=== PATIENT | female | born 1940 | race Caucasian/White ===

== ENCOUNTER → 2016-10-31 | Outpatient (REF) | payer OTHER ==
[~2016-10-31] MED LIST: /CELE20CA OR; ALLO300T; ALLO300T OR; ASPI325T; ASPI81TA83 OR; CORE25TA OR; DEME50TA; FLEXERIL; FLEXERIL OR; GLIP5TAB20 OR; GLUC850T OR; KLON0.5T OR; LASI80TA OR; LIDO5DIS EXT; MICA80TA OR; PERC5TAB8 OR; TRAM50TA2 OR; ZOCO20TA OR
== END ==
LOC: M SFHCPLAZ 08:06
PROVIDERS: ATTEND Family Medicine
DX: E11.9 Type 2 diabetes mellitus without complications (principal); E78.5 Hyperlipidemia, unspecified; M81.0 Age-related osteoporosis without current pathological fracture

== ENCOUNTER → 2016-10-31 | Outpatient (CLI) | payer OTHER | LOC: M WHC 08:35 | PROVIDERS: ATTEND Family Medicine | DX: M81.0 Age-related osteoporosis without current pathological fracture (principal) ==

== ENCOUNTER → 2017-02-25 | Outpatient (REF) | payer OTHER ==
[2017-02-25 12:45] LABS: ALBUMIN 3.7 GM/DL (3.2-5.2); ALBUMIN/GLOBULIN RATIO 1.42 (1.00-1.93); BILIRUBIN,TOTAL 0.4 MG/DL (0.2-1.0); CALCIUM LEVEL 9.6 MG/DL (8.8-10.2); CREATININE FOR GFR 1.29 MG/DL (0.55-1.02); GLOMERULAR FILTRATION RATE 42.7 (>39); POTASSIUM SERUM 4.6 MEQ/L (3.5-5.1); TOTAL PROTEIN 6.3 GM/DL (6.4-8.2)
== END ==
LOC: M SFHCPLAZ 08:17
PROVIDERS: ATTEND Family Medicine
DX: M79.1 Myalgia (principal)

== ENCOUNTER 2017-04-28 11:43 | Emergency (ER) | payer OTHER ==
[2017-04-28] MEDS ORDERED: NS 1,000 ML IV SCH (13:05)
[2017-04-28] MEDS ORDERED: MECLIZINE 25 MG TABLET PO ONE (13:15)
--- NOTE | 2017-04-28 13:34 | REP ---
CT of the brain without IV contrast: There are no comparisons. There is no hemorrhage. There is no edema, mass effect or midline shift. The cortical stripe is unremarkable. There are hypo densities in the subcortical/periventricular white matter compatible with chronic microvascular ischemia. Impression: There is no hemorrhage, acute infarct or mass. There are findings compatible with chronic microvascular ischemia. Signed by Kory Contreras MD 04/28/2017 01:27 P
[2017-04-28 13:44] LABS: BASO % 0.7 % (0.0-1.0); EOS # 0.4 K/mm3 (0.0-0.50); EOS % 5.1 % (0.0-3.0); LARGE UNSTAINED CELL # 0.1 K/mm3 (0.0-0.4); LARGE UNSTAINED CELL % 1.9 % (0.0-4.0); LYMPH # 1.7 K/mm3 (1.5-4.5); LYMPH % 23.3 % (24.0-44.0); MEAN CORPUSCULAR HGB CONC 34.2 g/dl (32.0-36.5); MEAN CORPUSCULAR VOLUME 93.5 fl (80.0-96.0); MONO # 0.4 K/mm3 (0.0-0.8); MONO % 4.8 % (0.0-5.0); NEUTROPHILS # 4.6 K/mm3 (1.8-7.7); NEUTROPHILS % 64.2 % (36.0-66.0); PLATELET COUNT, AUTOMATED 272 k/mm3 (150-450); RED CELL DISTRIBUTION WIDTH 13.5 % (11.5-14.5); WHITE BLOOD COUNT 7.2 K/mm3 (4.0-10.0)
--- NOTE | 2017-04-28 13:44 | REP ---
PA and lateral chest: Comparison studies are 09/11/2010 and 11/07 2009. The lung perez are clear. Cardiac size is upper normal. The katharine and mediastinum are unremarkable. There are calcifications in the left humeral head and neck compatible with infarct versus enchondroma. This is unchanged. There is osteoarthritis of the left shoulder, unchanged. There is a focal density projecting just inferior to the costochondral junction of the left first rib, unchanged from both prior studies, likely related to costochondral calcification. Impression: Essentially negative chest. There are no new or acute cardiopulmonary findings. There are chronic stable findings as described. Signed by Kory Contreras MD 04/28/2017 01:36 P
[2017-04-28 13:48] LABS: ALBUMIN 3.8 GM/DL (3.2-5.2); ALBUMIN/GLOBULIN RATIO 1.58 (1.00-1.93); ALKALINE PHOSPHATASE 42 U/L (45-117); ALT/SGPT 22 U/L (12-78); ANION GAP 10 MEQ/L (8-16); AST/SGOT 24 U/L (15-37); BILIRUBIN,DIRECT 0.1 MG/DL (0.0-0.2); BILIRUBIN,TOTAL 0.4 MG/DL (0.2-1.0); BLOOD UREA NITROGEN 32 MG/DL (7-18); CALCIUM LEVEL 10.2 MG/DL (8.8-10.2); CARBON DIOXIDE LEVEL 26 MEQ/L (21-32); CHLORIDE LEVEL 101 MEQ/L (98-107); CREATININE FOR GFR 1.28 MG/DL (0.55-1.02); GLUCOSE, FASTING 149 MG/DL (83-110); SODIUM LEVEL 137 MEQ/L (136-145); TOTAL PROTEIN 6.2 GM/DL (6.4-8.2)
[2017-04-28 13:49] LABS: METHADONE URINE NEGATIVE (NEGATIVE)
[2017-04-28 14:12] VITALS: BP 177/79
[2017-04-28] MEDS ORDERED: MECL-68 PO (14:55)
--- NOTE | 2017-04-30 11:10 | ECGEPIP ---
Stationary ECG Study [facility] - ED Test Date: 2017-04-28 Pat Name: FOREST ALMARAZ Department: Room: - Gender: F Paramedical Aide: umair : 1940 Requested By: ANH العراقي Order Number: [id number] Reading MD: Aide Avendano Measurements Intervals [place] Rate: 60 P: 69 AL: 283 QRS: -32 QRSD: 102 T: 31 QT: 422 QTc: 422 Interpretive Statements SINUS RHYTHM WITH FIRST DEGREE AV BLOCK INFERIOR MYOCARDIAL INFARCTION, PROBABLY OLD DELAYED R PROGRESSION NSTTW ABNORMALITY NO PRIOR FOR COMPARISON Electronically Signed On 04-30-2017 11:10:31 EDT by Aide Avendano
== END 2017-04-28 15:13 | disposition home or self-care (01) ==
LOC: M ED 11:43
DX: H83.09 Labyrinthitis, unspecified ear (principal); E11.9 Type 2 diabetes mellitus without complications; E78.4 Other hyperlipidemia; Z87.891 Personal history of nicotine dependence
CPT/HCPCS: 70450; 71010; 80048; 80076; 80307; 81001; 82550; 82553; 84443; 85025; 87086; 93005; 93041; 94760; 99285; G0480

== ENCOUNTER → 2017-10-13 | Outpatient (REF) | payer OTHER | LOC: M SFHCPLAZ 09:13 | DX: E11.9 Type 2 diabetes mellitus without complications (principal) ==

== ENCOUNTER → 2017-10-13 | Outpatient (REF) | payer OTHER ==
[2017-10-13 13:49] LABS: ESTIMATED AVERAGE GLUCOSE 157 MG/DL (60-110); HEMOGLOBIN A1c 7.1 %
== END ==
LOC: M SFHCPLAZ 12:50
DX: E11.9 Type 2 diabetes mellitus without complications (principal)

== ENCOUNTER → 2017-10-28 | Outpatient (REF) | payer OTHER ==
[2017-10-28 13:36] LABS: ANION GAP 10 MEQ/L (8-16); BLOOD UREA NITROGEN 33 MG/DL (7-18); CALCIUM LEVEL 9.9 MG/DL (8.8-10.2); CARBON DIOXIDE LEVEL 29 MEQ/L (21-32); CHLORIDE LEVEL 102 MEQ/L (98-107); CREATININE FOR GFR 1.42 MG/DL (0.55-1.02); GLOMERULAR FILTRATION RATE 38.1 (>39); GLUCOSE, FASTING 208 MG/DL (70-100); POTASSIUM SERUM 4.6 MEQ/L (3.5-5.1); SODIUM LEVEL 141 MEQ/L (136-145)
[2017-10-28 18:35] LABS: CREATININE, URINE 16.7 MG/DL; MALB URINE SIEMENS 14.4 MG/L; MAU/CREAT RATIO 86.2 MCG/MG (0.0-30.0)
== END ==
LOC: M SFHCPLAZ 10:38
DX: E11.9 Type 2 diabetes mellitus without complications (principal)
CPT/HCPCS: 82043

== ENCOUNTER → 2018-04-14 | Outpatient (REF) | payer OTHER ==
[2018-04-14 14:13] LABS: CREATININE, URINE 31.3 MG/DL; MALB URINE SIEMENS < 5.0 MG/L; MAU/CREAT RATIO 15.9 MCG/MG (0.0-30.0)
[2018-04-14 15:37] LABS: ANION GAP 9 MEQ/L (8-16); BLOOD UREA NITROGEN 39 MG/DL (7-18); CALCIUM LEVEL 9.8 MG/DL (8.8-10.2); CARBON DIOXIDE LEVEL 28 MEQ/L (21-32); CHLORIDE LEVEL 108 MEQ/L (98-107); CREATININE FOR GFR 1.38 MG/DL (0.55-1.30); GLOMERULAR FILTRATION RATE 39.4 (>39); GLUCOSE, FASTING 172 MG/DL (70-100); SODIUM LEVEL 145 MEQ/L (136-145)
[2018-04-14 16:43] LABS: ESTIMATED AVERAGE GLUCOSE 154 MG/DL (60-110)
== END ==
LOC: M SFHCPLAZ 10:55
DX: Z23 Encounter for immunization (principal)

== ENCOUNTER 2019-04-01 19:04 | Emergency (ER) | payer OTHER ==
[~2019-04-01] VITALS: Ht 162.6 cm; Wt 94.1 kg
[~2019-04-01 19:04] MED LIST changes: -/CELE20CA OR; +CELE1CAP4 OR; +MECL-68 PO
[2019-04-01] MEDS ORDERED: FENO67CA2 PO (19:10)
[2019-04-01] MEDS ORDERED: LOSA100T50 OR (19:36)
[2019-04-01] MEDS ORDERED: TRAM50TA2 OR (19:36)
[2019-04-01] MEDS: traMADol 50 MG TAB PO ONE (19:54)
--- NOTE | 2019-04-01 20:45 | REPVR ---
EXAM: US Duplex Right Lower Extremity Veins, Limited EXAM DATE/TIME: 04/01/2019 8:10 PM CLINICAL HISTORY: 78 years old, female; Pain; Leg, lower; Right; Additional info: Right calf/knee pain TECHNIQUE: Imaging protocol: Real-time Duplex ultrasound of the Right Lower Extremity with 2-D crook scale, color Doppler flow and spectral waveform analysis. Limited exam was focused on the right lower extremity veins. COMPARISON: No relevant prior studies available. FINDINGS: Right deep veins: Unremarkable. The common femoral, femoral, proximal profunda femoral and popliteal veins are patent without thrombus. Normal Doppler waveforms. Normal compressibility and/or augmentation response. Right superficial veins: Unremarkable. Saphenofemoral junction is patent without thrombus. Soft tissues: Unremarkable. IMPRESSION: No acute findings. No evidence of deep vein thrombosis. Electronically signed by: Myles Alford On 04/01/2019 20:45:31 PM
[2019-04-01 21:22] VITALS: BP 132/63
[2019-04-01] MEDS ORDERED: CAPS0.022 TOP (21:34)
--- NOTE | 2019-04-01 21:43 | REP ---
Clinical: Sudden acute onset of pain. Technique: AP, lateral, bilateral oblique views of the right knee. Findings: Age-related osteopenia and advanced, severe tricompartmental osteoarthritic degenerative changes are appreciated. Lateral view demonstrates swelling and large suprapatellar effusion. Subtle acute injury cannot definitively be excluded. Impression: 1. Osteopenia and severe tricompartmental osteoarthritic degenerative changes along with swelling and large suprapatellar effusion. Evaluation is limited for subtle acute injury. 2. Consider CT or MRI for further investigation if symptoms continue or increase. Electronically Signed by Pablo Middleton MD 04/01/2019 09:34 P
--- NOTE | 2019-04-04 13:56 | ED PDOC ---
Post-Departure Follow-Up alicia vallejo and haroon faxed formal report of right knee film for fu Kathy Slade MD Apr 04, 2019 13:56
== END 2019-04-01 21:36 | disposition home or self-care (01) ==
LOC: M ED 19:04
DX: M17.11 Unilateral primary osteoarthritis, right knee (principal); M25.561 Pain in right knee; E11.9 Type 2 diabetes mellitus without complications; M10.9 Gout, unspecified; Z87.891 Personal history of nicotine dependence; Z88.0 Allergy status to penicillin; Z88.1 Allergy status to other antibiotic agents; Z79.899 Other long term (current) drug therapy; Z79.84 Long term (current) use of oral hypoglycemic drugs; Z79.82 Long term (current) use of aspirin; Z79.891 Long term (current) use of opiate analgesic

== ENCOUNTER → 2019-04-26 | Outpatient (REF) | payer OTHER ==
[~2019-04-26] MED LIST changes: +CAPS0.022 TOP; +FENO67CA2 PO; +LOSA100T50 OR
[2019-04-26 13:13] LABS: CALCIUM LEVEL 9.5 MG/DL (8.8-10.2); CHOLESTEROL RISK RATIO 2.714 (<5); CREATININE FOR GFR 1.43 MG/DL (0.55-1.30); GLOMERULAR FILTRATION RATE 37.7 (>39); POTASSIUM SERUM 4.5 MEQ/L (3.5-5.1)
[2019-04-26 13:35] LABS: CREATININE, URINE 66.3 MG/DL; MALB URINE SIEMENS 10.5 MG/L; MAU/CREAT RATIO 15.8 MCG/MG (0.0-30.0)
[2019-04-26 13:41] LABS: HEMOGLOBIN A1c 7.4 %
== END ==
LOC: M SFHCPLAZ 08:02
PROVIDERS: ATTEND Family Medicine
DX: E11.9 Type 2 diabetes mellitus without complications (principal); E78.5 Hyperlipidemia, unspecified; N18.3 Chronic kidney disease, stage 3 (moderate)

== ENCOUNTER → 2019-05-09 | Outpatient (REF) | payer OTHER | LOC: M LABDRWAD 12:38 | PROVIDERS: ATTEND Student in an Organized Health Care Education/Training Program | DX: R51 Headache (principal) ==

== ENCOUNTER → 2019-06-10 | Outpatient (CLI) | payer MEDICARE, OTHER ==
--- NOTE | 2019-06-10 08:14 | REP ---
Clinical: Stage III chronic medical renal disease. Technique: Real time crook scale and color evaluation using curved array transducer. Findings: The kidneys are normal in reniform shape and demonstrate increased central sinus fat with cortical thinning consistent with chronic renal disease. No hydronephrosis, nephrolithiasis, cystic or renal mass lesion appreciated. Right kidney measures 10.2 x 4.8 x 4.1 cm. Left kidney measures 10.8 x 4.8 x 4.6 cm. Bladder is unremarkable. Impression: Chronic medical renal disease. No hydronephrosis. Electronically Signed by Pablo Middleton MD 06/10/2019 08:05 A
== END ==
LOC: M RAD 06:19
PROVIDERS: ATTEND Internal Medicine Nephrology
DX: N18.3 Chronic kidney disease, stage 3 (moderate) (principal); E11.22 Type 2 diabetes mellitus with diabetic chronic kidney disease; I12.9 Hypertensive chronic kidney disease with stage 1 through stage 4 chronic kidney disease, or unspecified chronic kidney disease

== ENCOUNTER → 2019-11-14 | Outpatient (REF) | payer OTHER ==
[~2019-11-14] MED LIST changes: -MECL-68 PO; +MECL1TAB31 PO
== END ==
LOC: M SFHCPLAZ 08:53
PROVIDERS: ATTEND Family Medicine
DX: E11.9 Type 2 diabetes mellitus without complications (principal)

== ENCOUNTER → 2019-11-14 | Outpatient (CLI) | payer OTHER ==
[2019-11-14 12:30] LABS: CREATININE, URINE 14.5 MG/DL; MALB URINE SIEMENS < 5.0 MG/L; MAU/CREAT RATIO 34.4 MCG/MG (0.0-30.0)
[2019-11-14 13:08] LABS: HEMOGLOBIN A1c 7.7 %
== END ==
LOC: M PLALAB 09:22
PROVIDERS: ATTEND Student in an Organized Health Care Education/Training Program
DX: E11.9 Type 2 diabetes mellitus without complications (principal)

== ENCOUNTER → 2020-03-27 | Outpatient (CLI) | payer OTHER ==
[2020-03-27 13:11] LABS: PERCENT SATURATION 15.9 % (13.2-45.0)
== END ==
LOC: M LABDRWAD 10:15
PROVIDERS: ATTEND Internal Medicine Cardiovascular Disease
DX: D64.9 Anemia, unspecified (principal)

== ENCOUNTER 2020-10-12 12:01 | Inpatient (IN) | payer MEDICARE, OTHER ==
[~2020-10-12] VITALS: Ht 154.9 cm; Wt 96.0 kg
[~2020-10-12 12:01] MED LIST changes: -ASPI81TA83 OR; +ASPI81TA83 PO; -CELE1CAP4 OR; +CELE1CAP4 PO; -GLIP5TAB20 OR; +GLIP5TAB20 PO; -LASI80TA OR; +LASI80TA PO; -LOSA100T50 OR; +LOSA100T50 PO; +TRAM50TA2 PO
[2020-10-12 12:45] LABS: BASO # 0.1 10^3/uL (0.0-0.2); BASO % 0.6 % (0.0-1.0); EOS # 0.5 10^3/uL (0.0-0.5); EOS % 5.5 % (0.0-3.0); HEMATOCRIT 39.7 % (36.0-47.0); HEMOGLOBIN 12.3 g/dl (12.0-15.5); LYMPH # 1.9 10^3/uL (1.5-5.0); LYMPH % 21.9 % (24.0-44.0); MEAN CORPUSCULAR HEMOGLOBIN 29.9 pg (27.0-33.0); MEAN CORPUSCULAR VOLUME 96.6 fl (80.0-96.0); MONO # 0.6 10^3/uL (0.0-0.8); MONO % 6.3 % (0.0-5.0); NEUTROPHILS # 5.7 10^3/uL (1.5-8.5); NEUTROPHILS % 65.2 % (36.0-66.0); PLATELET COUNT, AUTOMATED 217 10^3/uL (150-450); RED BLOOD COUNT 4.11 10^6/uL (4.00-5.40); WHITE BLOOD COUNT 8.8 10^3/uL (4.0-10.0)
--- NOTE | 2020-10-12 12:54 | REP ---
INDICATION: CHEST PAIN COMPARISON: 04/28/2017 TECHNIQUE: Portable AP view of the chest FINDINGS: The mediastinum and cardiac silhouette are stable and within normal limits for portable technique. The lung perez are clear without acute consolidation, effusion, or pneumothorax. Skeletal structures demonstrate stable chronic osteopenia and degenerative changes primarily involving the bilateral shoulders. IMPRESSION: No acute cardiopulmonary process appreciated. <Electronically signed by Pablo Middleton > 10/12/20 [id number]
[2020-10-12 12:57] LABS: INR 0.95; PROTHROMBIN TIME 12.9 SECONDS (12.5-14.3)
[2020-10-12 12:58] LABS: PARTIAL THROMBOPLASTIN TIME 29.5 SECONDS (24.2-38.5)
[2020-10-12 13:21] LABS: ALBUMIN 3.5 GM/DL (3.2-5.2); ALT/SGPT 70 U/L (12-78); BILIRUBIN,DIRECT 0.1 MG/DL (0.0-0.2); BILIRUBIN,TOTAL 0.4 MG/DL (0.2-1.0); BLOOD UREA NITROGEN 45 MG/DL (7-18); CALCIUM LEVEL 8.8 MG/DL (8.8-10.2); CARBON DIOXIDE LEVEL 25 MEQ/L (21-32); CHLORIDE LEVEL 108 MEQ/L (98-107); CK-MB VALUE MASS 2.2 NG/ML (<3.6); CPK CREATINE PHOSPHOKINASE 57 U/L (26-192); CREATININE FOR GFR 1.38 MG/DL (0.55-1.30); GLOMERULAR FILTRATION RATE 39.1 (>32); GLUCOSE, FASTING 240 MG/DL (70-100); LIPASE 291 U/L (73-393); MB/CK RELATIVE INDEX 3.86 (< OR =4); NT-PRO BNP 1369 PG/ML (<450); POTASSIUM SERUM 4.8 MEQ/L (3.5-5.1); SODIUM LEVEL 138 MEQ/L (136-145); TOTAL PROTEIN 6.1 GM/DL (6.4-8.2); TROPONIN I < 0.02 NG/ML (< 0.10)
[2020-10-12] MEDS ORDERED: CARV40CA PO (17:03)
[2020-10-12] MEDS ORDERED: MECL-86 PO (17:03)
[2020-10-12] MEDS ORDERED: METF500T13 PO (17:03)
[2020-10-12] MEDS ORDERED: ALLO100T PO (17:03)
[2020-10-12] MEDS ORDERED: RA M10TA PO (17:07)
[2020-10-12] MEDS ORDERED: DRIS50003 PO (17:07)
[2020-10-12] MEDS ORDERED: BENG1CRE3 TOP (17:07)
[2020-10-12] MEDS ORDERED: BIOF4GEL2 TOP (17:07)
[2020-10-12] MEDS ORDERED: THERTAB52 PO (17:07)
[2020-10-12] MEDS ORDERED: ALEN70TA82 PO (17:07)
--- NOTE | 2020-10-12 17:30 | HPEPDOC ---
[facility] Medical History & Physical Date of Admission Oct 12, 2020 Date of Service: Oct 12, 2020 History and Physical CHIEF COMPLAINT: shortness of breath for 2 days, chest heaviness today HISTORY OF PRESENT ILLNESS: 80y/o female with pmh significant for diastolic chf with preserved systolic function, hypertensive heart disease, bsk-khpwkgj-kdzlzvzmn type 2 diabetes, osteoarthritis, anxiety, gout, chronic kidney disease stage III, presents to emergency room with 2 day history of worsening shortness of breath initially n oted when she was ambulating, but worsened to even at rest, unable to sleep flat on the bed since last night with lower extremity edema, but denied any weight gain, accompanied with substernal chest tightness today without radiation, better when she lays still, Nonpleuritic, unrelated to meals or position , prompting her to come into the ER. She also complained of lightheadedness and dizziness when she stood up from bed this morning and turned her head towards her television, which is close to her bed. She does not have a blood pressure, pulse monitor at home. . She otherwise denies any fever, chills, cough, nausea, vomiting, feeling of impending doom, Epigastric pain, diarrhea, constipation, bright red blood per rectum, melena, black tarry stools, hematemesis, coffee- ground emesis. . No medications were taken for the above symptoms. . She admits to chronic neck pain and shoulder pain .In the emergency room she was found to have bradycardia, ventricular rate of 37-44 beats per minute with no P waves on EKG. EKG showed old Q waves in the inferior leads .Blood pressure was 130 to 140 systolic with no syncopal episode. Troponin was negative, but BNP was elevated at 1369 . Chest x-ray no acute infiltrates, pleural effusions, or pulmonary edema. Hospitalist was asked to admit the patient for symptomatic bradycardia and chest pain, rule out acute coronary syndrome PAST MEDICAL HISTORY: diastolic chf with preserved systolic function, hypertensive heart disease, iqf-cozrmik-pawyaqrhb type 2 diabetes, osteoarthritis, anxiety, gout, chronic kidney disease stage III, shoulder osteoarthritis, degenerative joint disease PAST SURGICAL HISTORY: , ureteral stone removal, cholecystectomy , left foot surgery secondary to ruptured tendo, SOCIAL HISTORY: Lives in her own home with her granddaughter. Her girlfriend. Prior history of smoking quit over 50 years ago, denies alcohol or recreational drug use. Previously worked for [employer] and [employer] FAMILY HISTORY: Father of CAD, [place] at age 65. Mother at the age of 54 with CAD, [place]. Brother of massive [place], CAD at the age of 62, sister age 78 with hypertension and diabetes ALLERGIES: Please see below. REVIEW OF SYSTEMS: 12 point review of systems negative aside from positive findings in HPI HOME MEDICATIONS: Please see below. PHYSICAL EXAMINATION: VITAL SIGNS: See below GENERAL APPEARANCE: Pleasant, no respiratory distress, cyanosis, pallor, speaks in full sentences without conversational dyspnea Appears her stated age HEENT: Positive JVD, no thyromegaly, cervical lymphadenopathy. Moist mucous membranes. No stridor CARDIOVASCULAR: S1, S2, bradycardic LUNGS: Diminished breath sounds, fine crepitations bilaterally at the bases ABDOMEN: Obese, soft, nontender, nondistended, positive bowel sounds. No rebound, guarding EXTREMITIES: Positive 1+ pitting edema to the thighs LABORATORY DATA: See below. IMAGING: cxr 10/12/20: INDICATION: CHEST PAIN COMPARISON: 04/28/2017 TECHNIQUE: Portable AP view of the chest FINDINGS: The mediastinum and cardiac silhouette are stable and within normal limits for portable technique. The lung perez are clear without acute consolidation, effusion, or pneumothorax. Skeletal structures demonstrate stable chronic osteopenia and degenerative changes primarily involving the bilateral shoulders. IMPRESSION: No acute cardiopulmonary process appreciated. MICROBIOLOGY: Please see below. ASSESSMENT/PLAN: 80y/o female with pmh significant for diastolic chf with preserved systolic function, hypertensive heart disease, exi-tsoipzl-sldhtyipi type 2 diabetes, osteoarthritis, anxiety, gout, chronic kidney disease stage III, presents to emergency room with 2 day history of worsening shortness of breath initially noted when she was ambulating, but worsened to even at rest, unable to sleep flat on the bed since last night with lower extremity edema, but denied any weight gain, accompanied with substernal chest tightness today without radiation, better when she lays still, Nonpleuritic, unrelated to meals or position , prompting her to come into the ER. She also complained of lightheadedness and dizziness when she stood up from bed this morning and turned her head towards her television, which is close to her bed. She does not have a blood pressure, pulse monitor at home. . She otherwise denies any fever, chills, cough, nausea, vomiting, feeling of impending doom, Epigastric pain, diarrhea, constipation, bright red blood per rectum, melena, black tarry stools, hematemesis, coffee-ground emesis. . No medications were taken for the above symptoms. . She admits to chronic neck pain and shoulder pain .In the emergency room she was found to have bradycardia, ventricular rate of 37-44 beats per minute with no P waves on EKG. EKG showed old Q waves in the inferior leads .Blood pressure was 130 to 140 systolic with no syncopal episode. Troponin was negative, but BNP was elevated at 1369 . Chest x-ray no acute infiltrates, pleural effusions, or pulmonary edema. Hospitalist was asked to admit the patient for symptomatic bradycardia, chest pain, rule out acute coronary syndrome, and decompensated diastolic CHF with acute exacerbation. Symptomatic bradycardia -Patient complained of chest heaviness, dizziness and lightheadedness at home and found to have junctional rhythm without P waves on EKG and heart rate ranging between 37-66 bpm with stable systolic blood pressure of 1:30 to 1 40 mmHg at the bedside on telemetry in the ER. -Ground Services Instructor on-call, Dr. Alejo has been consulted to assess for pacemaker evaluation if needed. She has been admitted to the telemetry unit. Pacer pads and atropine at the bedside. We are avoiding any beta blockade or calcium channel blockers Acute decompensated congestive heart failure with preserved systolic function/ Diastolic dysfunction -Admitted to PCU telemetry. Fluid restriction of 2 L. Strict I's and O's, daily weights, and Lasix 40 mg IV every 8 hourly with holding parameters for systolic pressure less than 120 or creatinine greater than 1.7. Monitor patient's creatinine with daily BMP and electrolytes to be supplemented for goal potassium greater than 4 and magnesium greater than 2. Echocardiogram ordered. Cardiology consulted. -Check venous Dopplers lower extremities, rule out DVT -Avoid NSAIDs in light of decompensated CHF. Chest pain -Cycle cardiac markers every 6 hourly, monitor with serial EKGs. Nitroglycerin as needed Hypertensive heart disease -Currently stable with systolic blood pressure of 130-140 mmHg on bedside telemetry. Cmx-fkyfnrm-ntbbtcyxy diabetes type 2 -Insulin Sliding scale fingersticks before every meal qHS, consistent carbohydrate diet Chronic kidney disease stage III -At baseline creatinine. Renally dose all medications and avoid nephrotoxins. Anxiety -Chronic Obesity, BMI 41.3 -Complicating care OA/ degenerative joint disease of the shoulders, bilateral knees -Avoid nonsteroidal anti-inflammatories due to acute CHF exacerbation Gout -Asymptomatic DVT prophylaxis. Compression stockings Diet 2 g sodium, consistent carbohydrate. , Nothing by mouth after midnight for possible pacemaker depending on telemetry overnight CODE STATUS full code Vital Signs Vital Signs Date Time Temp Pulse Resp B/P (MAP) Pulse Ox O2 Delivery O2 Flow Rate FiO2 10/12/20 14:56 41 18 98 10/12/20 14:46 139/84 (102) 10/12/20 12:02 97.4 Room Air Laboratory Data Labs 24H Laboratory Tests 2 10/12/20 12:17: Immature Granulocyte % (Auto) 0.5, Neutrophils (%) (Auto) 65.2, Lymphocytes (%) (Auto) 21.9L, Monocytes (%) (Auto) 6.3H, Eosinophils (%) (Auto) 5.5H, Basophils (%) (Auto) 0.6, Neutrophils # (Auto) 5.7, Lymphocytes # (Auto) 1.9, Monocytes # (Auto) 0.6, Eosinophils # (Auto) 0.5, Basophils # (Auto) 0.1, Nucleated Red Blo od Cells % (auto) 0.0, Prothrombin Time 12.9, Prothromb Time International Ratio 0.95, Activated Partial Thromboplast Time 29.5, Anion Gap 5L, Glomerular Filtration Rate 39.1, Calcium Level 8.8, Total Bilirubin 0.4, Direct Bilirubin 0.1, Aspartate Amino Transf (AST/SGOT) 81H, Alanine Aminotransferase (ALT/SGPT) 70, Alkaline Phosphatase 137H, Total Creatine Kinase 57, Creatine Kinase MB 2.2, Creatine Kinase MB Relative Index 3.86, Troponin I < 0.02, CA-Hat-P-Type Natriuretic Peptide 1369H, Total Protein 6.1L, Albumin 3.5, Albumin/Globulin Ratio 1.3, Lipase 291, Thyroid Stimulating Hormone (TSH) 4.980H, Free Thyroxine 1.20 10/12/20 12:24: POC Troponin I (Misc) 0.02 CBC/BMP Laboratory Tests 10/12/20 12:17 Microbiology Microbiology 10/12/20 Respiratory Virus Panel (PCR) ([facility]) - Final, Complete Home Medications Scheduled Alendronate Sodium (Alendronate Sodium) 70 Mg Tablet, 70 MG PO QWEEK Allopurinol (Allopurinol) 300 Mg Tab, 300 MG OR DAILY take with 100mg for 400mg Allopurinol (Allopurinol) 100 Mg Tablet, 100 MG PO DAILY Aspirin (Aspirin Low Dose) 81 Mg Tab, 81 MG PO DAILY Carvedilol Phosphate (Carvedilol ER) 40 Mg Cpmp.24hr, 40 MG PO BID Celecoxib (Celebrex) 200 Mg Cap, 200 MG PO DAILY Ergocalciferol (Vitamin D2) (Drisdol) 1,250 Mcg Capsule, 1,250 MCG PO QWEEK Furosemide (Lasix) 80 Mg Tab, 80 MG PO DAILY Glipizide (Glipizide Er) 5 Mg Tab, 15 MG PO DAILY Losartan Potassium (Losartan Potassium) 100 Mg Tablet, 100 MG PO DAILY Metformin HCl (Metformin HCl) 500 Mg Tablet, 1,000 MG PO BID Methyl Salicylate/Menthol (Bengay Greaseless Cream) 57 Gm Cream..g., 1 APLCT TOP TID TO AFFECTED AREAS Multivitamin,Therapeutic (Thera-Tabs) 1 Each Tablet, 1 TAB PO DAILY Simvastatin (Zocor) 20 Mg Tab, 20 MG OR QHS Scheduled PRN Meclizine HCl (Meclizine HCl) 25 Mg Tablet, 25 MG PO TID PRN for DIZZINESS Melatonin (Melatonin) 10 Mg Tablet, 10 MG PO QHS PRN for INSOMNIA Menthol (Biofreeze) 118 Ml Gel..ml., 1 APLCT TOP TID PRN for PAIN TO AFFECTED AREAS Tramadol HCl (Tramadol HCl) 50 Mg Tablet, 50 MG PO QID PRN for PAIN Allergies Coded Allergies: Penicillins (Verified Allergy, Intermediate, WELT AT SITE OF INJECTION, 04/01/19) streptomycin (Verified Allergy, Intermediate, HIVES, 04/01/19) A-FIB/CHADSVASC A-FIB History Current/History of A-Fib/PAF?: No Current PO Anticoag Therapy: No Age/Risk Factor Scoring CHADSVASC: CHADSVASC Response (Comments) Value Age Risk Factor Age >/= 75 years old 2 Gender Risk Factor Female 1 Hx of CHF Yes 1 Hx of HTN Yes 1 Hx of Stroke/TIA/or VTE No 0 Hx of Diabetes Yes 1 Hx of Vascular Disease No 0 Total 6 Treatment Treatment ordered: NONE RONNELL JHAVERI MD Oct 12, 2020 17:29
[2020-10-12] MEDS ORDERED: MECLIZINE 25 MG TABLET PO PRN (17:45)
[2020-10-12] MEDS ORDERED: LOSARTAN 50MG TABLET PO ONE (17:45)
[2020-10-12 17:49] LABS: CK-MB VALUE MASS 1.9 NG/ML (<3.6); CPK CREATINE PHOSPHOKINASE 47 U/L (26-192); MB/CK RELATIVE INDEX 4.04 (< OR =4); TROPONIN I < 0.02 NG/ML (< 0.10)
[2020-10-12] MEDS ORDERED: hydrALAZINE 20MG/ML 1ML VIAL (J0360 PER 20MG) IV PRN (18:00)
[2020-10-12 18:01] VITALS: BP 188/82
--- NOTE | 2020-10-12 18:08 | REPVR ---
PROCEDURE INFORMATION: Exam: US Duplex Lower Extremity Veins, Bilateral Exam date and time: 10/12/2020 5:50 PM Age: 80 years old Clinical indication: Edema, localized; Lower extremity, bilateral; Additional info: Edema R/O dvt TECHNIQUE: Imaging protocol: Real-time duplex ultrasound of the extremities with 2-D crook scale, color Doppler flow and spectral waveform analysis with image documentation. Complete exam focused on the bilateral lower extremity veins. COMPARISON: US Duplex, Ext,LOWER veins,unilat RIGHT 04/01/2019 8:04 PM FINDINGS: Right deep veins: Unremarkable. The common femoral, femoral and popliteal veins are patent without thrombus. Normal Doppler waveforms. Normal compressibility and/or augmentation response. Right superficial veins: Saphenofemoral junction is patent without thrombus. Left deep veins: Unremarkable. The common femoral, femoral and popliteal veins are patent without thrombus. Normal Doppler waveforms. Normal compressibility and/or augmentation response. Left superficial veins: Saphenofemoral junction is patent without thrombus. Soft tissues: Unremarkable. IMPRESSION: No sonographic evidence of deep vein thrombosis. Electronically signed by: Myles Alford On 10/12/2020 18:08:57 PM
[2020-10-12] MEDS: FUROSEMIDE 40MG/4ML VIAL (J1940) IV SCH (18:09)
[2020-10-12] MEDS ORDERED: SLF 3 ML SYR IV PRN (19:00)
[2020-10-12 20:00] VITALS: BP 140/72
--- NOTE | 2020-10-12 21:42 | ECGEPIP ---
[facility] - ED Test Date: 2020-10-12 Pat Name: FOREST ALMARAZ Department: Room: - Gender: Female Cleaner Window: : 1940 Requested By: Aide Avendano Order Number: [id number] Reading MD: Kuldeep Flores Measurements Intervals [place] Rate: 40 P: ID: 0 QRS: -38 QRSD: 118 T: 13 QT: 488 QTc: 400 Interpretive Statements JUNCTIONAL BRADYCARDIA INFERIOR MYOCARDIAL INFARCTION, PROBABLY OLD ANTEROSEPTAL MYOCARDIAL INFARCTION, OF INDETERMINATE AGE RHYTHM/RATE CHANGE COMPARED TO 04/28/17 Electronically Signed on 10-12-2020 21:42:00 EST by Kuldeep Flores
--- NOTE | 2020-10-12 21:43 | ECGEPIP ---
[facility] - ED Test Date: 2020-10-12 Pat Name: FOREST ALMARAZ Department: Room: - Gender: Female Cotton Bag Clipper: TESS : 1940 Requested By: HANK العراقي Order Number: [id number] Reading MD: Kuldeep Flores Measurements Intervals [place] Rate: 41 P: [place]: 0 QRS: -38 QRSD: 113 T: 14 QT: 495 QTc: 410 Interpretive Statements JUNCTIONAL BRADYCARDIA POSSIBLE ANTERIOR MYOCARDIAL INFARCTION, PROBABLY OLD INFERIOR MYOCARDIAL INFARCTION, PROBABLY OLD SIMILAR TO PRIOR ON SAME DATE Electronically Signed on 10-12-2020 21:42:53 EST by Kuldeep Flores
--- NOTE | 2020-10-12 21:45 | ECGEPIP ---
[facility] - ED Test Date: 2020-10-12 Pat Name: FOREST ALMARAZ Department: Room: - Gender: Female Order Make Up Clerk: JAZMÍN : 1940 Requested By: HANK العراقي Order Number: [id number] Reading MD: Kuldeep Flores Measurements Intervals [place] Rate: 43 P: [place]: 0 QRS: -39 QRSD: 104 T: 11 QT: 491 QTc: 419 Interpretive Statements JUNCTIONAL BRADYCARDIA WITH OCCASIONAL SINUS NODE ACTIVITY POSSIBLE ANTERIOR MYOCARDIAL INFARCTION, OF INDETERMINATE AGE INFERIOR MYOCARDIAL INFARCTION, PROBABLY OLD Electronically Signed on 10-12-2020 21:44:46 EST by Kuldeep Flores
[2020-10-12] MEDS: SLF 3 ML SYR IV SCH (22:07)
[2020-10-13] VITALS (7 sets, daily range): BP systolic 132–173; BP diastolic 60–70
[2020-10-13 00:47] LABS: BLOOD UREA NITROGEN 42 MG/DL (7-18); CALCIUM LEVEL 9.5 MG/DL (8.8-10.2); CARBON DIOXIDE LEVEL 28 MEQ/L (21-32); CHLORIDE LEVEL 109 MEQ/L (98-107); CK-MB VALUE MASS 1.7 NG/ML (<3.6); CPK CREATINE PHOSPHOKINASE 40 U/L (26-192); CREATININE FOR GFR 1.13 MG/DL (0.55-1.30); GLOMERULAR FILTRATION RATE 49.2 (>32); GLUCOSE, FASTING 124 MG/DL (70-100); MB/CK RELATIVE INDEX 4.25 (< OR =4); POTASSIUM SERUM 3.6 MEQ/L (3.5-5.1); SODIUM LEVEL 142 MEQ/L (136-145); TROPONIN I < 0.02 NG/ML (< 0.10)
[2020-10-13] MEDS: FUROSEMIDE 40MG/4ML VIAL (J1940) IV SCH ×3 (04:00→21:09)
[2020-10-13] MEDS: SLF 3 ML SYR IV SCH ×3 (04:48→21:09)
[2020-10-13 05:35] LABS: HEMATOCRIT 39.2 % (36.0-47.0); HEMOGLOBIN 12.1 g/dl (12.0-15.5); MEAN CORPUSCULAR HEMOGLOBIN 29.1 pg (27.0-33.0); MEAN CORPUSCULAR HGB CONC 30.9 g/dl (32.0-36.5); MEAN CORPUSCULAR VOLUME 94.2 fl (80.0-96.0); PLATELET COUNT, AUTOMATED 207 10^3/uL (150-450); RED BLOOD COUNT 4.16 10^6/uL (4.00-5.40); WHITE BLOOD COUNT 9.3 10^3/uL (4.0-10.0)
[2020-10-13 05:50] LABS: INR 1.01; PROTHROMBIN TIME 13.5 SECONDS (12.5-14.3)
[2020-10-13 06:07] LABS: BLOOD UREA NITROGEN 36 MG/DL (7-18); CALCIUM LEVEL 8.8 MG/DL (8.8-10.2); CARBON DIOXIDE LEVEL 26 MEQ/L (21-32); CHLORIDE LEVEL 110 MEQ/L (98-107); CHOLESTEROL LEVEL 114 MG/DL (<200); CHOLESTEROL RISK RATIO 2.533 (<5); CK-MB VALUE MASS 1.5 NG/ML (<3.6); CPK CREATINE PHOSPHOKINASE 41 U/L (26-192); CREATININE FOR GFR 1.02 MG/DL (0.55-1.30); GLOMERULAR FILTRATION RATE 55.4 (>32); GLUCOSE, FASTING 83 MG/DL (70-100); HDL CHOLESTEROL 45 MG/DL (>40); LDL CHOLESTEROL 30 MG/DL (<100); MB/CK RELATIVE INDEX 3.66 (< OR =4); NON-HDL-C 69 MG/DL; POTASSIUM SERUM 3.9 MEQ/L (3.5-5.1); SODIUM LEVEL 144 MEQ/L (136-145); TRIGLYCERIDES LEVEL 197 MG/DL (<150); TROPONIN I < 0.02 NG/ML (< 0.10)
[2020-10-13] MEDS: allopurinoL 100 MG TAB PO SCH (09:09)
[2020-10-13] MEDS: LOSARTAN 50MG TABLET PO SCH (09:09)
--- NOTE | 2020-10-13 11:28 | IPNPDOC ---
Date Seen The patient was seen on 10/13/20. Progress Note SUBJECTIVE: Patient shortness of breath is improved lower extremity edema is better. She has no chest pain, pressure, tightness. No dizziness or lightheadedness this morning. Telemetry overnight shows sinus, post 2.9 seconds, but hemodynamically stable and no complaints No complaints of thirst and had 1.5 L urine output overnight with normal creatinine PHYSICAL EXAMINATION: VITAL SIGNS: See below GENERAL APPEARANCE: Pleasant, no respiratory distress, cyanosis, pallor, s peaks in full sentences without conversational dyspnea Appears her stated age , sitting comfortably bedside HEENT: NoJVD, no thyromegaly, cervical lymphadenopathy. Moist mucous membranes. No stridor CARDIOVASCULAR: S1, S2, bradycardic LUNGS: Diminished breath sounds, bilateral crackles at the bases ABDOMEN: Obese, soft, nontender, nondistended, positive bowel sounds. No rebound, guarding EXTREMITIES: Positive 1+ pitting edema to the thighs LABORATORY DATA: See below. IMAGING: cxr 10/12/20: INDICATION: CHEST PAIN COMPARISON: 04/28/2017 TECHNIQUE: Portable AP view of the chest FINDINGS: The mediastinum and cardiac silhouette are stable and within normal limits for portable technique. The lung perez are clear without acute consolidation, effusion, or pneumothorax. Skeletal structures demonstrate stable chronic osteopenia and degenerative changes primarily involving the bilateral shoulders. IMPRESSION: No acute cardiopulmonary process appreciated. MICROBIOLOGY: Please see below. ASSESSMENT/PLAN: 80y/o female with pmh significant for diastolic chf with preserved systolic function, hypertensive heart disease, ato-kfrctxj-dwznhggon type 2 diabetes, osteoarthritis, anxiety, gout, chronic kidney disease stage III, presents to emergency room with 2 day history of worsening shortness of breath initially noted when she was ambulating, but worsened to even at rest, unable to sleep flat on the bed since last night with lower extremity edema, but denied any weight gain, accompanied with substernal chest tightness today without radiation, better when she lays still, Nonpleuritic, unrelated to meals or position , prompting her to come into the ER. She also complained of lightheadedness and dizziness when she stood up from bed this morning and turned her head towards her television, which is close to her bed. She does not have a blood pressure, pulse monitor at home. . She otherwise denies any fever, chills, cough, nausea, vomiting, feeling of impending doom, Epigastric pain, diarrhea, c onstipation, bright red blood per rectum, melena, black tarry stools, hematemesis, coffee-ground emesis. . No medications were taken for the above symptoms. . She admits to chronic neck pain and shoulder pain .In the emergency room she was found to have bradycardia, ventricular rate of 37-44 beats per minute with no P waves on EKG. EKG showed old Q waves in the inferior leads .Blood pressure was 130 to 140 systolic with no syncopal episode. Troponin was negative, but BNP was elevated at 1369 . Chest x-ray no acute infiltrates, pleural effusions, or pulmonary edema. Hospitalist was asked to admit the patient for symptomatic bradycardia, chest pain, rule out acute coronary syndrome, and decompensated diastolic CHF with acute exacerbation. Symptomatic bradycardia -Patient complained of chest heaviness, dizziness and lightheadedness at home and found to have junctional rhythm without P waves on EKG and heart rate ranging between 37- 44 bpm. She was admitted to the telemetry unit and was found to have a 2.9 second pause with no hemodynamic compromise. Blood pressure was well maintained and patient was asymptomatic at the time. Cardiology has been consulted and per Dr. Yeung's recommendations. Patient is to be continued on telemetry monitoring and to continue on diuresis for heart failure Acute decompensated congestive heart failure with preserved systolic function/ Diastolic dysfunction -Admitted to PCU telemetry. Fluid restriction of 2 L. Strict I's and O's, daily weights, and Lasix 40 mg IV every 8 hourly with holding parameters for systolic pressure less than 120 or creatinine greater than 1.7. Patient's creatinine has improved overnight. She remains in a negative balance. Chest pain -Resolved. Troponins negative Hypertensive heart disease -Currently stable with systolic blood pressure of 130-140 mmHg on bedside telemetry. Qnp-adwirvn-tgocjluws diabetes type 2 -Insulin Sliding scale fingersticks before every meal qHS, consistent carbohydrate diet Chronic kidney disease stage III -Normal creatinine today after diuresis Anxiety -Chronic Obesity, BMI 41.3 -Complicating care OA/ degenerative joint disease of the shoulders, bilateral knees -Avoid nonsteroidal anti-inflammatories due to acute CHF exacerbation Gout -Asymptomatic DVT prophylaxis. Compression stockings Diet 2 g sodium, consistent carbohydrate. CODE STATUS full code VS, I&O, 24H, Fishbone Vital Signs/I&O Vital Signs Date Time Temp Pulse Resp B/P (MAP) Pulse Ox O2 Delivery O2 Flow Rate FiO2 10/13/20 09:09 149/70 10/13/20 08:00 98.6 63 20 97 Room Air I&O- Last 24 Hours up to 6 AM 10/13/20 06:00 Intake Total 0 ml Output Total 1600 ml Balance -1600 ml Laboratory Data 24H LABS Laboratory Tests 2 10/12/20 12:17: Immature Granulocyte % (Auto) 0.5, Neutrophils (%) (Auto) 65.2, Lymphocytes (%) (Auto) 21.9L, Monocytes (%) (Auto) 6.3H, Eosinophils (%) (Auto) 5.5H, Basophils (%) (Auto) 0.6, Neutrophils # (Auto) 5.7, Lymphocytes # (Auto) 1.9, Monocytes # (Auto) 0.6, Eosinophils # (Auto) 0.5, Basophils # (Auto) 0.1, Nucleated Red Blood Cells % (auto) 0.0, Prothrombin Time 12.9, Prothromb Time International Ratio 0.95, Activated Partial Thromboplast Time 29.5, Anion Gap 5L, Glomerular Filtration Rate 39.1, Calcium Level 8.8, Total Bilirubin 0.4, Direct Bilirubin 0.1, Aspartate Amino Transf (AST/SGOT) 81H, Alanine Aminotransferase (ALT/SGPT) 70, Alkaline Phosphatase 137H, Total Creatine Kinase 57, Creatine Kinase MB 2.2, Creatine Kinase MB Relative Index 3.86, Troponin I < 0.02, VM-Via-T-Type Natriuretic Peptide 1369H, Total Protein 6.1L, Albumin 3.5, Albumin/Globulin Ratio 1.3, Lipase 291, Thyroid Stimulating Hormone (TSH) 4.980H, Free Thyroxine 1.20 10/12/20 12:24: POC Troponin I (Misc) 0.02 10/12/20 16:51: Total Creatine Kinase 47, Creatine Kinase MB 1.9, Creatine Kinase MB Relative Index 4.04H, Troponin I < 0.02 10/13/20 00:06: Anion Gap 5L, Glomerular Filtration Rate 49.2, Calcium Level 9.5, Total Creatine Kinase 40, Creatine Kinase MB 1.7, Creatine Kinase MB Relative Index 4.25H, Troponin I < 0.02 10/13/20 04:49: Nucleated Red Blood Cells % (auto) 0.0, Prothrombin Time 13.5, Prothromb Time International Ratio 1.01, Anion Gap 8, Glomerular Filtration Rate 55.4, Calcium Level 8.8, Magnesium Level 2.0, Total Creatine Kinase 41, Creatine Kinase MB 1.5, Creatine Kinase MB Relative Index 3.66, Troponin I < 0.02, Triglycerides Level 197H, Total Cholesterol 114, LDL Cholesterol 30, Non-HDL Cholesterol (LDL + VLDL) 69, Total HDL Cholesterol 45, Cholesterol/HDL Ratio 2.533 CBC/BMP Laboratory Tests 10/12/20 12:17 10/13/20 00:06 10/13/20 04:49 Microbiology Microbiology 10/12/20 Respiratory Virus Panel (PCR) ([facility]) - Final, Complete RONNELL JHAVERI MD Oct 13, 2020 11:28
[2020-10-13] MEDS ORDERED: lisinopriL 5 MG TAB PO ONE (12:15)
[2020-10-13] MEDS ORDERED: LOSARTAN 25 MG TAB PO ONE (12:45)
[2020-10-13 12:47] LABS: CK-MB VALUE MASS 1.6 NG/ML (<3.6); CPK CREATINE PHOSPHOKINASE 42 U/L (26-192); MB/CK RELATIVE INDEX 3.81 (< OR =4); TROPONIN I < 0.02 NG/ML (< 0.10)
[2020-10-14] VITALS: BP 148/82
[2020-10-14] MEDS: RAMELTEON 8 MG TAB (ROZEREM) PO PRN (00:30)
[2020-10-14] MEDS: ACETAMINOPHEN TAB 650MG DOSE (2X325MG) PO PRN ×2 (01:07→22:12)
[2020-10-14 04:00] VITALS: BP 130/75
[2020-10-14] MEDS: FUROSEMIDE 40MG/4ML VIAL (J1940) IV SCH (04:03)
[2020-10-14] MEDS: SLF 3 ML SYR IV SCH ×3 (04:03→20:51)
[2020-10-14 04:05] LABS: HEMATOCRIT 44.4 % (36.0-47.0); MEAN CORPUSCULAR HEMOGLOBIN 29.6 pg (27.0-33.0); MEAN CORPUSCULAR HGB CONC 31.8 g/dl (32.0-36.5); MEAN CORPUSCULAR VOLUME 93.1 fl (80.0-96.0); PLATELET COUNT, AUTOMATED 270 10^3/uL (150-450); RED BLOOD COUNT 4.77 10^6/uL (4.00-5.40)
[2020-10-14 04:10] LABS: HEMOGLOBIN 14.1 g/dl (12.0-15.5)
[2020-10-14 04:48] LABS: CALCIUM LEVEL 9.8 MG/DL (8.8-10.2); CREATININE FOR GFR 1.24 MG/DL (0.55-1.30); GLOMERULAR FILTRATION RATE 44.2 (>32)
[2020-10-14 08:00] VITALS: BP 155/64
[2020-10-14] MEDS ORDERED: lisinopriL 5 MG TAB PO SCH (09:00)
[2020-10-14] MEDS: allopurinoL 100 MG TAB PO SCH (09:23)
[2020-10-14] MEDS: LOSARTAN 50MG TABLET PO SCH (09:24)
--- NOTE | 2020-10-14 10:51 | IPNPDOC ---
Date Seen The patient was seen on 10/14/20. Progress Note SUBJECTIVE: Tele: new onset Afib but rate controlled. no sinus pause or bradycardia no c/o sob, lightheadedness, dizziness, palpitations, diaphoresis, nausea, vomiting, epigastric pain, or chest tightness. yellow-orange urine this morning and chapped lips requesting lip balm. has been net negative balance since admission. PHYSICAL EXAMINATION: VITAL SIGNS: See below I/O and weight reviewed GENERAL APPEARANCE: sitting on a chair at the bedside comfortable pleasant aaox 3 no respiratory distress, cyanosis, pallor, s peaks in full sentences without conversational dyspnea Appears her stated age , sitting comfortably bedside HEENT: NoJVD, no thyromegaly, cervical lymphadenopathy. Moist mucous membranes. No stridor CARDIOVASCULAR: S1, S2, bradycardic LUNGS: clear to auscultation no wheezing or rales. AEBE. ABDOMEN: Obese, soft, nontender, nondistended, positive bowel sounds. No re bound, guarding EXTREMITIES: Positive 1+ pitting edema bl LABORATORY DATA: See below. IMAGING: cxr 10/12/20: INDICATION: CHEST PAIN COMPARISON: 04/28/2017 TECHNIQUE: Portable AP view of the chest FINDINGS: The mediastinum and cardiac silhouette are stable and within normal limits for portable technique. The lung perez are clear without acute consolidation, effusion, or pneumothorax. Skeletal structures demonstrate stable chronic osteopenia and degenerative changes primarily involving the bilateral shoulders. IMPRESSION: No acute cardiopulmonary process appreciated. MICROBIOLOGY: Please see below. ASSESSMENT/PLAN: 80y/o female with pmh significant for diastolic chf with preserved systolic function, hypertensive heart disease, jfx-ygsdjqe-mnhyesjqh type 2 diabetes, osteoarthritis, anxiety, gout, chronic kidney disease stage III, presents to emergency room with 2 day history of worsening shortness of breath initially noted when she was ambulating, but worsened to even at rest, unable to sleep flat on the bed since last night with lower extremity edema, but denied any weight gain, accompanied with substernal chest tightness today without radiation, better when she lays still, Nonpleuritic, unrelated to meals or position , prompting her to come into the ER. She also complained of lightheadedness and dizziness when she stood up from bed this morning and turned her head towards her television, which is close to her bed. She does not have a blood pressure, pulse monitor at home. . She otherwise denies any fever, chills, cough, nausea, vomiting, feeling of impending doom, Epigastric pain, diarrhea, constipation, bright red blood per rectum, melena, black tarry stools, hematemesis, coffee-ground emesis. . No medications were taken for the above symptoms. . She admits to chronic neck pain and shoulder pain .In the emergency room she was found to have bradycardia, ventricular rate of 37-44 beats per minute with no P waves on EKG. EKG showed old Q waves in the inferior leads .Blood pressure was 130 to 140 systolic with no syncopal episode. Troponin was negative, but BNP was elevated at 1369 . Chest x-ray no acute infiltrates, pleural effusions, or pulmonary edema. Hospitalist was asked to admit the patient for symptomatic bradycardia, chest pain, rule out acute coronary syndrome, and decompensated diastolic CHF with acute exacerbation. Sick Sinus Syndrome -new onset AFib, rate controlled on Tele 10/14/20 with bradycardia 37-44 bpm on admission -on admission, Patient complained of chest heaviness, dizziness and lightheadedness at home and found to have junctional rhythm without P waves on EKG and heart rate ranging between 37- 44 bpm. -does not require any rate control meds at this time. -cardiology consulted to determine if pt needs a pacemaker to prevent bradycardia in case rate control med is needed for Afib eventually. -at risk of cva with new onset Afib, lovenox for now which we can discontinue 12 hours prior to any procedure, until we definitely know that a pacer is not required. -if no plans for pacemaker by scanning clerk, can give po eliquis. check stool for blood New Onset Atrial Fibrillation -does not require any rate control meds at this time. -cardiology consulted to determine if pt needs a pacemaker to prevent bradycardia in case rate control med is needed for Afib eventually. -at risk of cva with new onset Afib, lovenox for now which we can discontinue 12 hours prior to any procedure, until we definitely know that a pacer is not required. -if no plans for pacemaker by scanning clerk, can give po eliquis. check stool for blood Acute decompensated congestive heart failure with preserved systolic function/ Diastolic dysfunction -Admitted to PCU telemetry. Fluid restriction of 2 L. Strict I's and O's, daily weights -s/p Lasix 40 mg IV every 8 hourly with holding parameters She remains in a negative balance. -c/o chapped lips and yellow orange urine, and euvolemic with clear lungs -changed to po lasix 40mg daily and low dose spironolactone 25 mg po daily. Chest pain -Resolved. Troponins negative Hypertensive heart disease -uncontrolled with goal sbp<130mmhg -on losartan 100 mg daily -added spironolactone and lasix for chf. -monitor for worsening azotemia with serial bmp. Fwb-rvprsce-lhfbfzkog diabetes type 2 -Insulin Sliding scale fingersticks before every meal qHS, consistent carbohydrate diet -controlled. Chronic kidney disease stage III -normal creatinine -monitor with serial bmp now that the patient is on lasix and spironolactone along with home losartan. Anxiety -Chronic Obesity, BMI 41.3 -Complicating care OA/ degenerative joint disease of the shoulders, bilateral knees -Avoid nonsteroidal anti-inflammatories due to acute CHF exacerbation Gout -Asymptomatic DVT prophylaxis. Compression stockings Diet 2 g sodium, consistent carbohydrate. CODE STATUS full code disposition: awaiting decision from scanning clerk if pacemaker is needed for sick sinus syndrome if persistent bradycardia and sinus pause with new afib. VS, I&O, 24H, [facility] Vital Signs/I&O Vital Signs Date Time Temp Pulse Resp B/P (MAP) Pulse Ox O2 Delivery O2 Flow Rate FiO2 10/14/20 09:24 155/64 10/14/20 08:00 97.1 79 20 97 Room Air I&O- Last 24 Hours up to 6 AM 10/14/20 06:00 Intake Total 940 ml Output Total 2050 ml Balance -1110 ml Laboratory Data 24H LABS Laboratory Tests 2 10/13/20 11:56: Total Creatine Kinase 42, Creatine Kinase MB 1.6, Creatine Kinase MB Relative Index 3.81, Troponin I < 0.02 10/14/20 03:51: Nucleated Red Blood Cells % (auto) 0.0, Anion Gap 9, Glomerular Filtration Rate 44.2, Calcium Level 9.8, Magnesium Level 2.0 CBC/BMP Laboratory Tests 10/14/20 03:51 Microbiology Microbiology 10/12/20 Respiratory Virus Panel (PCR) ([facility]) - Final, Complete RONNELL JHAVERI MD Oct 14, 2020 10:51
[2020-10-14] MEDS ORDERED: SPIRONOLACTONE 25 MG TAB PO ONE (11:00)
[2020-10-14] MEDS ORDERED: FUROSEMIDE 40 MG TAB PO ONE (11:00)
[2020-10-14] MEDS ORDERED: FUROSEMIDE 80 MG TAB PO ONE (11:30)
[2020-10-14 12:00] VITALS: BP 164/88
[2020-10-14] MEDS: ENOXAPARIN 100MG/1ML SYRINGE (J1650 PER 10MG) SC SCH ×2 (12:29→23:19)
[2020-10-14 15:53] VITALS: BP 132/67
[2020-10-14 20:00] VITALS: BP 150/68
--- NOTE | 2020-10-14 23:10 | ECGEPIP ---
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
--- NOTE | 2020-10-14 23:20 | ECGEPIP ---
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 Atrial fibrillation is new. Electronically Signed on 10-14-2020 23:19:53 EST by Mehdi Alejo
[2020-10-15] VITALS: BP 139/74
[2020-10-15 04:00] VITALS: BP 149/72
[2020-10-15] MEDS: SLF 3 ML SYR IV SCH ×3 (05:17→22:40)
[2020-10-15 06:02] LABS: HEMATOCRIT 47.5 % (36.0-47.0); HEMOGLOBIN 15.2 g/dl (12.0-15.5); MEAN CORPUSCULAR VOLUME 93.9 fl (80.0-96.0); PLATELET COUNT, AUTOMATED 289 10^3/uL (150-450); RED BLOOD COUNT 5.06 10^6/uL (4.00-5.40); WHITE BLOOD COUNT 12.3 10^3/uL (4.0-10.0)
[2020-10-15 06:36] LABS: CALCIUM LEVEL 9.9 MG/DL (8.8-10.2); CREATININE FOR GFR 1.38 MG/DL (0.55-1.30); GLOMERULAR FILTRATION RATE 39.1 (>32); MAGNESIUM LEVEL 2.1 MG/DL (1.8-2.4); POTASSIUM SERUM 3.8 MEQ/L (3.5-5.1)
[2020-10-15 08:00] VITALS: BP 160/90
--- NOTE | 2020-10-15 08:02 | ECHO ---
DATE OF PROCEDURE: 10/13/2020 Age: 80 Gender: Female Height: 61 inches Weight: 218 pounds Body surface area: 1.96 m2 PATIENT LOCATION: Inpatient PCU, Room 3215. REFERRING PHYSICIAN: Silvina Meeks MD. INDICATION: Congestive heart failure (CHF). MEASUREMENTS: 2D Measurements: RV 4.4 cm LV 4.8 cm Septum 1.1 cm Posterior wall 1.1 cm Aortic Root 3.6 cm Ascending aorta 3.8 cm LA 3.8 cm LVEF 75% Doppler Measurements: AV 1.55 m/s LVOT 0.97 m/s LVOT diameter 2.1 cm MV-E 107, A 93, E/A ratio 1.1 Early mitral deceleration time 246 msec E prime medial 5.8, A prime medial 7.4, E prime lateral 7.8 Average E/E prime ratio 15.7/PCWP 21.4 mmHg PV 0.8 m/s Pulmonary artery acceleration time 98 msec RVSP 37 mmHg IVC 1.2 cm COMMENTS: Normal sinus rhythm without intraventricular conduction disturbance. Somewhat challenging study in light of the patients body habitus, but diagnostically useful information was still obtained. M-mode and two-dimensional echocardiography was performed with pulse, continuous wave, color flow, and tissue Doppler studies. Normal left ventricular size and wall thickness upper limits of normal with hyperkinetic wall motion. Left atrial size upper limits of normal with grade 2 LV diastolic dysfunction and mildly elevated estimated mean left atrial pressure. Mildly dilated right heart chambers with normal wall motion and Doppler evidence of at least mild pulmonary hypertension. Normal IVC size and collapse against an elevated central venous pressure. Normal aortic root size, but mildly dilated ascending aorta. Moderate aortic valvular sclerosis without stenosis, but at least mild slightly eccentric aortic insufficiency. Degenerative changes of the mitral valve apparatus with moderate mitral annular calcification, but adequate leaflet excursion and no posterior systolic buckling with only very mild mitral insufficiency. Normal appearing tricuspid valve with mild insufficiency. No apparent intracardiac mass or pericardial effusion. MTDD
[2020-10-15] MEDS: allopurinoL 100 MG TAB PO SCH (08:46)
[2020-10-15] MEDS: LOSARTAN 50MG TABLET PO SCH (08:46)
[2020-10-15] MEDS: SPIRONOLACTONE 25 MG TAB PO SCH (08:47)
[2020-10-15] MEDS: traMADol 50 MG TAB PO PRN ×2 (08:55→20:01)
[2020-10-15] MEDS ORDERED: FUROSEMIDE 80 MG TAB PO SCH (09:00)
[2020-10-15] MEDS ORDERED: FUROSEMIDE 40 MG TAB PO SCH (09:00)
--- NOTE | 2020-10-15 09:54 | IPNPDOC ---
Date Seen The patient was seen on 10/15/20. Progress Note SUBJECTIVE: tele: afib 60-97, but 47 this morning. no sinus pause. denies dizziness, lightheadedness, sob, cp. c/o not sleeping well, "I kept waking up, and now I'm exhausted." bp maintained despite hr 47 slow afib on lovenox for cva prophylaxis for afib ,but will be held 12hrs if pacer recommended by cardiology. PHYSICAL EXAMINATION: VITAL SIGNS: See below I/O and weight reviewed GENERAL APPEARANCE: sitting on a chair at the bedside comfortable but appears tired pleasant aaox 3 no respiratory distress, cyanosis, pallor, s peaks in full sentences without conversational dyspnea Appears her stated age , sitting comfortably bedside HEENT: NoJVD, no thyromegaly, EOMI cervical lymphadenopathy. Moist mucous membranes. No stridor CARDIOVASCULAR: S1, S2, bradycardic irregularly irregular LUNGS: clear to auscultation no wheezing or rales. AEBE. ABDOMEN: Obese, soft, nontender, nondistended, positive bowel sounds. No rebound, guarding EXTREMITIES: Positive 1+ pitting edema bl LABORATORY DATA: See below. IMAGING: cxr 10/12/20: INDICATION: CHEST PAIN COMPARISON: 04/28/2017 TECHNIQUE: Portable AP view of the chest FINDINGS: The mediastinum and cardiac silhouette are stable and within normal limits for portable technique. The lung perez are clear without acute consolidation, effusion, or pneumothorax. Skeletal structures demonstrate stable chronic osteopenia and degenerative changes primarily involving the bilateral shoulders. IMPRESSION: No acute cardiopulmonary process appreciated. MICROBIOLOGY: Please see below. ASSESSMENT/PLAN: 80y/o female with pmh significant for diastolic chf with preserved systolic function, hypertensive heart disease, ydf-exsdusa-qodoejhlt type 2 diabetes, osteoarthritis, anxiety, gout, chronic kidney disease stage III, presents to emergency room with 2 day history of worsening shortness of breath initially noted when she was ambulating, but worsened to even at rest, unable to sleep flat on the bed since last night with lower extremity edema, but denied any weight gain, accompanied with substernal chest tightness today without radiation, better when she lays still, Nonpleuritic, unrelated to meals or position , prompting her to come into the ER. She also complained of lightheadedness and dizziness when she stood up from bed this morning and turned her head towards her television, which is close to her bed. She does not have a blood pressure, pulse monitor at home. . She otherwise denies any fever, chills, cough, nausea, vomiting, feeling of impending doom, Epigastric pain, diarrhea, constipation, bright red blood per rectum, melena, black tarry stools, hematemesis, coffee-ground emesis. . No medications were taken for the above symptoms. . She admits to chronic neck pain and shoulder pain .In the emergency room she was found to have bradycardia, ventricular rate of 37-44 beats per minute with no P waves on EKG. EKG showed old Q waves in the inferior leads .Blood pressure was 130 to 140 systolic with no syncopal episode. Troponin was negative, but BNP was elevated at 1369 . Chest x-ray no acute infiltrates, pleural effusions, or pulmonary edema. Hospitalist was asked to admit the patient for symptomatic bradycardia, chest pain, rule out acute coronary syndrome, and decompensated diastolic CHF with acute exacerbation. Sick Sinus Syndrome -new onset AFib, rate controlled on Tele 10/14/20 with bradycardia 37-44 bpm on admission -on admission, Patient complained of chest heaviness, dizziness and lighth eadedness at home and found to have junctional rhythm without P waves on EKG and heart rate ranging between 37- 44 bpm. -does not require any rate control meds at this time. -cardiology consulted to determine if pt needs a pacemaker to prevent bradycardia in case rate control med is needed for Afib eventually. -at risk of cva with new onset Afib, lovenox for now which we can discontinue 12 hours prior to any procedure, until we definitely know that a pacer is not required. -if no plans for pacemaker by engagement mgr, can give po eliquis. -had slow afib this morning 47, but no c/o aside from being tired from not sleeping well last night. New Onset Atrial Fibrillation -does not require any rate control meds at this time, and had 47 slow afib on Tele this moring -cardiology consulted to determine if pt needs a pacemaker to prevent bradycardia in case rate control med is needed for Afib eventually. -at risk of cva with new onset Afib, lovenox for now which we can discontinue 12 hours prior to any procedure, until we definitely know that a pacer is not required. -if no plans for pacemaker by engagement mgr, can give po eliquis. Acute decompensated congestive heart failure with preserved systolic function/ Diastolic dysfunction -Admitted to PCU telemetry. Fluid restriction of 2 L. Strict I's and O's, daily weights -s/p Lasix 40 mg IV every 8 hourly with holding parameters She remains in a negative balance. -resumed po lasix and spironolactone added Chest pain -Resolved. Troponins negative Hypertensive heart disease -uncontrolled with goal sbp<130mmhg -on losartan 100 mg daily -added spironolactone and lasix for chf. -monitor for worsening azotemia with serial bmp. Mom-bhprcts-oatbcpkxd diabetes type 2 -Insulin Sliding scale fingersticks before every meal qHS, consistent carbohydrate diet -controlled. Chronic kidney disease stage III -normal creatinine -monitor with serial bmp now that the patient is on lasix and spironolactone along with home losartan. Anxiety -Chronic Obesity, BMI 41.3 -Complicating care OA/ degenerative joint disease of the shoulders, bilateral knees -Avoid nonsteroidal anti-inflammatories due to acute CHF exacerbation Gout -Asymptomatic DVT prophylaxis. Compression stockings Diet 2 g sodium, consistent carbohydrate. CODE STATUS full code disposition: awaiting decision from engagement mgr if pacemaker is needed for sick sinus syndrome since developed slow afib, sinus pause on tele during this admission. VS, I&O, 24H, Fishbone Vital Signs/I&O Vital Signs Date Time Temp Pulse Resp B/P (MAP) Pulse Ox O2 Delivery O2 Flow Rate FiO2 10/15/20 08:55 18 96 Room Air 10/15/20 08:46 160/90 10/15/20 08:00 98.1 46 I&O- Last 24 Hours up to 6 AM 10/15/20 06:00 Intake Total 780 ml Output Total 1000 ml Balance -220 ml Laboratory Data 24H LABS Laboratory Tests 2 10/15/20 05:42: Nucleated Red Blood Cells % (auto) 0.0, Anion Gap 7L, Glomerular Filtration Rate 39.1, Calcium Level 9.9, Magnesium Level 2.1 CBC/BMP Laboratory Tests 10/15/20 05:42 Microbiology Microbiology 10/12/20 Respiratory Virus Panel (PCR) ([facility]) - Final, Complete RONNELL JHAVERI MD Oct 15, 2020 09:54
[2020-10-15 12:00] VITALS: BP 142/68
[2020-10-15] MEDS: ENOXAPARIN 100MG/1ML SYRINGE (J1650 PER 10MG) SC SCH (12:00)
[2020-10-15] MEDS ORDERED: ANALGESIC BALM CRM 120 GM TOP PRN (12:30)
[2020-10-15 16:00] VITALS: BP 140/80
[2020-10-15] MEDS: FUROSEMIDE 100MG/10ML VIAL (J1940) IV SCH (17:20)
[2020-10-15 20:00] VITALS: BP 145/66
[2020-10-15] MEDS: RAMELTEON 8 MG TAB (ROZEREM) PO PRN (20:00)
[2020-10-16] VITALS: BP 158/78
[2020-10-16] MEDS: ENOXAPARIN 100MG/1ML SYRINGE (J1650 PER 10MG) SC SCH ×2 (00:25→12:18)
[2020-10-16 04:00] VITALS: BP 157/82
[2020-10-16 06:01] LABS: HEMATOCRIT 44.2 % (36.0-47.0); HEMOGLOBIN 14.1 g/dl (12.0-15.5); MEAN CORPUSCULAR HEMOGLOBIN 30.3 pg (27.0-33.0); MEAN CORPUSCULAR HGB CONC 31.9 g/dl (32.0-36.5); MEAN CORPUSCULAR VOLUME 94.8 fl (80.0-96.0); PLATELET COUNT, AUTOMATED 231 10^3/uL (150-450); RED BLOOD COUNT 4.66 10^6/uL (4.00-5.40); WHITE BLOOD COUNT 10.8 10^3/uL (4.0-10.0)
[2020-10-16 06:25] LABS: CALCIUM LEVEL 9.2 MG/DL (8.8-10.2); CREATININE FOR GFR 1.44 MG/DL (0.55-1.30); GLOMERULAR FILTRATION RATE 37.2 (>32); POTASSIUM SERUM 3.8 MEQ/L (3.5-5.1)
[2020-10-16] MEDS: SLF 3 ML SYR IV SCH (06:46)
[2020-10-16 08:00] VITALS: BP 170/60
[2020-10-16 08:13] VITALS: BP 170/60
[2020-10-16] MEDS: allopurinoL 100 MG TAB PO SCH (08:13)
[2020-10-16] MEDS: LOSARTAN 50MG TABLET PO SCH (08:13)
[2020-10-16] MEDS: FUROSEMIDE 100MG/10ML VIAL (J1940) IV SCH (09:00)
[2020-10-16] MEDS: SPIRONOLACTONE 25 MG TAB PO SCH (09:00)
[2020-10-16] MEDS ORDERED: ELIQ2.5T PO (09:50)
--- NOTE | 2020-10-17 23:46 | DS.PDOC ---
Discharge Summary General Date of Admission Oct 12, 2020 at 16:20 Date of Discharge Oct 16, 2020 Attending Physician: MEKHI POND DO Discharge Summary PROCEDURES PERFORMED DURING STAY: None ADMITTING DIAGNOSES: 1. Symptomatic bradycardia 2. Acute decompensated congestive heart failure with preserved systolic function/ Diastolic dysfunction 3. Chest pain 4. Hypertensive heart disease 5. Krt-svlxbtt-ljrprovcn diabetes type 2 6. Chronic kidney disease stage III 7. Anxiety 8. Obesity 9. OA/ degenerative joint disease of the shoulders, bilateral knees 10. Gout DISCHARGE DIAGNOSES: 1. Sick sinus syndrome 2. Atrial fibrillation 3. Acute decompensated diastolic congestive heart failure 4. Chest pain 5. Hypertension 6. Cis-axpjige-pdpyoitkd diabetes type 2 7. Chronic kidney disease stage III 8. Anxiety 9. Obesity 10. OA 11. Gout COMPLICATIONS/CHIEF COMPLAINT: Symptomatic Bradycardia. HISTORY OF PRESENT ILLNESS: Mrs. Martinez is an 80 year old female with diastolic CHF, hypertension, DM, and CKD stage III who presented to the ED for 2 days of dyspnea. The shortness of breath is worse with ambulation and lying flat on back. Patient noticed worsening lower extremity edema. In addition, she has had substernal chest pain with chest tightness. Pain better at rest. No radiation and no pleuritic component. Chest pain not related to meals or positioning. Other complaints include lightheadedness and dizziness with standing and turning her head. While in the ED, she was found to have bradycardia with ventricular rate on 37 to 44 beats per minute. EKG did not demonstrate P waves, but had old Q waves in the inferior leads. Blood pressure was 130 to 140 systolically. Troponin negative. BNP elevated at 1369. CXR did not demonstrate any acute infiltrates, pleural effusions, or pulmonary edema. Patient was admitted for symptomatic bradycardia and chest pain rule out ACS. HOSPITAL COURSE: Cardiology was consulted. Patient to be diuresed while monitoring on telemetry. She did have a 2.9 second pause without hemodynamic compromise. She was also found to have new onset atrial fibrillation, but was not started on BB due to bradycardia. Cardiology was deciding on pacer, but decided against it during this hospitalization. Coreg was held and her rate rate improved. Otherwise, her fluid status was optimized. Troponin is negative x5. Today, patient felt well and felt ready for home. Due to her new onset atrial fibrillation, she was sent home with Eliquis DISCHARGE MEDICATIONS: Please see below. ALLERGIES: Please see below. PHYSICAL EXAMINATION ON DISCHARGE: VITAL SIGNS: Please see below. GENERAL: Comfortable, in no apparent distress HEENT: Head normocephalic, atraumatic, EOMI NECK: Supple CARDIOVASCULAR EXAMINATION: Regular rate but irregula rhythm RESPIRATORY EXAMINATION: Lungs clear to auscultation bilaterally ABDOMINAL EXAMINATION: Soft, non-tender, normal bowel sounds EXTREMITIES: Bilateral pitting edema NEUROLOGICAL EXAMINATION: CN 3-12 grossly intact PSYCHIATRIC EXAMINATION: Normal mood and affect LABORATORY DATA: Please see below. IMAGING: CXR No acute cardiopulmonary process appreciated. US Lower Extremity, Bilateral No sonographic evidence of deep vein thrombosis. PROGNOSIS: Good ACTIVITY: As tolerated. DIET: 2gm sodium diet and carbohydrate consistent diet DISCHARGE PLAN: Home DISPOSITION: 01 Home, Self-Care. DISCHARGE INSTRUCTIONS: 1. Follow up with PCP in 1 week 2. Follow up with Cardiology in 1 week DISCHARGE CONDITION: Stable. Total time spent on discharge planning, discharge summary, and medication reconciliation: 40 minutes Vital Signs/I&Os Vital Signs Date Time Temp Pulse Resp B/P (MAP) Pulse Ox O2 Delivery O2 Flow Rate FiO2 10/16/20 08:13 170/60 10/16/20 08:00 97.3 84 16 100 Room Air I&O- Last 24 Hours up to 6 AM 10/17/20 06:00 Intake Total 480 ml Output Total 0 ml Balance 480 ml Laboratory Data Labs 24H Laboratory Tests 2 10/17/20 05:57: Lab Scanned Report Miscellaneous Lab Microbiology Microbiology 10/12/20 Respiratory Virus Panel (PCR) ([facility]) - Final, Complete Discharge Medications Scheduled Alendronate Sodium (Alendronate Sodium) 70 Mg Tablet, 70 MG PO QWEEK, (Reported) Allopurinol (Allopurinol) 300 Mg Tab, 300 MG OR DAILY, (Reported) take with 100mg for 400mg Allopurinol (Allopurinol) 100 Mg Tablet, 100 MG PO DAILY, (Reported) Apixaban (Eliquis) 2.5 Mg Tablet, 2.5 MG PO BID Aspirin (Aspirin Low Dose) 81 Mg Tab, 81 MG PO DAILY, (Reported) Ergocalciferol (Vitamin D2) (Drisdol) 1,250 Mcg Capsule, 1,250 MCG PO QWEEK, (Reported) Furosemide (Lasix) 80 Mg Tab, 80 MG PO DAILY, (Reported) Glipizide (Glipizide Er) 5 Mg Tab, 15 MG PO DAILY, (Reported) Losartan Potassium (Losartan Potassium) 100 Mg Tablet, 100 MG PO DAILY, (Reported) Metformin HCl (Metformin HCl) 500 Mg Tablet, 1,000 MG PO BID, (Reported) Methyl Salicylate/Menthol (Bengay Greaseless Cream) 57 Gm Cream..g., 1 APLCT TOP TID, (Reported) TO AFFECTED AREAS Multivitamin,Therapeutic (Thera-Tabs) 1 Each Tablet, 1 TAB PO DAILY, (Reported) Simvastatin (Zocor) 20 Mg Tab, 20 MG OR QHS, (Reported) Scheduled PRN Meclizine HCl (Meclizine HCl) 25 Mg Tablet, 25 MG PO TID PRN for DIZZINESS, (Reported) Melatonin (Melatonin) 10 Mg Tablet, 10 MG PO QHS PRN for INSOMNIA, (Reported) Menthol (Biofreeze) 118 Ml Gel..ml., 1 APLCT TOP TID PRN for PAIN, (Reported) TO AFFECTED AREAS Tramadol HCl (Tramadol HCl) 50 Mg Tablet, 50 MG PO QID PRN for PAIN, (Reported) Allergies Coded Allergies: Penicillins (Verified Allergy, Intermediate, WELT AT SITE OF INJECTION, 04/01/19) streptomycin (Verified Allergy, Intermediate, HIVES, 04/01/19) MEKHI POND DO Oct 17, 2020 23:46
== END 2020-10-16 13:29 | disposition home or self-care (01) | DRG 308 ==
LOC: M ED 12:01 → M ED INP 16:20 → M PCU 17:54
PROVIDERS: ADMIT General Practice; ATTEND Internal Medicine
DX: I49.5 Sick sinus syndrome (principal); I50.33 Acute on chronic diastolic (congestive) heart failure; Z68.41 Body mass index [BMI] 40.0-44.9, adult; I13.0 Hypertensive heart and chronic kidney disease with heart failure and stage 1 through stage 4 chronic kidney disease, or unspecified chronic kidney disease; E11.22 Type 2 diabetes mellitus with diabetic chronic kidney disease; F41.9 Anxiety disorder, unspecified; M10.9 Gout, unspecified; N18.30 Chronic kidney disease, stage 3 unspecified; E66.9 Obesity, unspecified; M17.0 Bilateral primary osteoarthritis of knee; M19.011 Primary osteoarthritis, right shoulder; I48.91 Unspecified atrial fibrillation; M19.012 Primary osteoarthritis, left shoulder; R07.2 Precordial pain; Z87.891 Personal history of nicotine dependence; Z79.82 Long term (current) use of aspirin; Z79.84 Long term (current) use of oral hypoglycemic drugs; Z79.899 Other long term (current) drug therapy; Z88.0 Allergy status to penicillin; Z88.1 Allergy status to other antibiotic agents; Z88.8 Allergy status to other drugs, medicaments and biological substances

== ENCOUNTER → 2020-10-24 | Outpatient (REF) | payer OTHER ==
[~2020-10-24] MED LIST changes: +ALEN70TA82 PO; +ALLO100T PO; +BENG1CRE3 TOP; +BIOF4GEL2 TOP; +CARV40CA PO; +DRIS50003 PO; +ELIQ2.5T PO; +MECL-86 PO; +METF500T13 PO; +RA M10TA PO; +THERTAB52 PO
== END ==
LOC: M SFHCPLAZ 10:32
PROVIDERS: ATTEND Family Medicine
DX: E11.9 Type 2 diabetes mellitus without complications (principal)

== ENCOUNTER → 2020-12-10 | Outpatient (REF) | payer OTHER ==
[2020-12-10 14:28] LABS: HEMOGLOBIN A1c 6.4 %
== END ==
LOC: M LABDRWAD 12:31
PROVIDERS: ATTEND Student in an Organized Health Care Education/Training Program
DX: E11.9 Type 2 diabetes mellitus without complications (principal)

== ENCOUNTER → 2020-12-17 | Outpatient (REF) | payer OTHER | LOC: M SFHCPLAZ 14:41 | PROVIDERS: ATTEND Family Medicine | DX: G72.9 Myopathy, unspecified (principal) ==

== ENCOUNTER → 2020-12-24 | Outpatient (REF) | payer OTHER ==
[2020-12-24 13:46] LABS: HEMATOCRIT 41.4 % (36.0-47.0); HEMOGLOBIN 13.2 g/dl (12.0-15.5); MEAN CORPUSCULAR HEMOGLOBIN 30.7 pg (27.0-33.0); MEAN CORPUSCULAR HGB CONC 31.9 g/dl (32.0-36.5); MEAN CORPUSCULAR VOLUME 96.3 fl (80.0-96.0); PLATELET COUNT, AUTOMATED 237 10^3/uL (150-450); WHITE BLOOD COUNT 9.3 10^3/uL (4.0-10.0)
[2020-12-24 14:16] LABS: ERYTHROCYTE SEDIMENTATION RATE 21 mm/hr (0-30)
[2020-12-24 14:41] LABS: ALBUMIN 3.5 GM/DL (3.2-5.2); ALT/SGPT 38 U/L (12-78); BILIRUBIN,TOTAL 0.4 MG/DL (0.2-1.0); BLOOD UREA NITROGEN 24 MG/DL (7-18); C REACTIVE PROTEIN QUANTITATIV 0.79 MG/DL (0.00-0.30); CARBON DIOXIDE LEVEL 28 MEQ/L (21-32); CHLORIDE LEVEL 107 MEQ/L (98-107); CPK CREATINE PHOSPHOKINASE 56 U/L (26-192); CREATININE FOR GFR 1.01 MG/DL (0.55-1.30); GLUCOSE, FASTING 131 MG/DL (70-100); RHEUMATOID FACTOR QUANT < 10.0 IU/ML (<15.0); SODIUM LEVEL 144 MEQ/L (136-145); TOTAL PROTEIN 6.1 GM/DL (6.4-8.2)
[2020-12-26 00:07] LABS: ANTINUCLEAR ANTIBODIES DIRECT Negative (Negative); CYCLIC CITRULLINATED PEPTIDE 6 units (0-19); MYOGLOBIN URINE QUANTITATIVE 3 ng/mL (0-13)
== END ==
LOC: M SFHCPLAZ 09:33 → M SFHCADAM 09:36
PROVIDERS: ATTEND Family Medicine
DX: G72.9 Myopathy, unspecified (principal)

== ENCOUNTER → 2021-03-05 | Outpatient (REF) | payer OTHER | LOC: M LAB REF 16:15 | PROVIDERS: ATTEND Podiatrist | DX: L03.032 Cellulitis of left toe (principal) ==

== ENCOUNTER → 2021-06-04 | Outpatient (CLI) | payer OTHER ==
[~2021-06-04] MED LIST changes: -FENO67CA2 PO; +FENO67CA6 PO
[2021-06-04 19:26] LABS: BASO % 0.4 % (0.0-1.0); EOS # 0.2 10^3/uL (0.0-0.5); EOS % 2.1 % (0.0-3.0); HEMATOCRIT 40.6 % (36.0-47.0); LYMPH # 1.5 10^3/uL (1.5-5.0); LYMPH % 14.3 % (24.0-44.0); MEAN CORPUSCULAR VOLUME 93.5 fl (80.0-96.0); MONO # 0.7 10^3/uL (0.0-0.8); MONO % 6.8 % (2.0-8.0); NEUTROPHILS # 7.8 10^3/uL (1.5-8.5); NEUTROPHILS % 75.8 % (36.0-66.0); PLATELET COUNT, AUTOMATED 293 10^3/uL (150-450); RED BLOOD COUNT 4.34 10^6/uL (4.00-5.40); WHITE BLOOD COUNT 10.3 10^3/uL (4.0-10.0)
[2021-06-04 19:50] LABS: ALBUMIN 3.5 GM/DL (3.2-5.2); ALT/SGPT 57 U/L (12-78); BILIRUBIN,TOTAL 0.6 MG/DL (0.2-1.0); BLOOD UREA NITROGEN 18 MG/DL (7-18); CALCIUM LEVEL 9.3 MG/DL (8.8-10.2); CARBON DIOXIDE LEVEL 23 MEQ/L (21-32); CHLORIDE LEVEL 109 MEQ/L (98-107); CK-MB VALUE MASS 3.7 NG/ML (<3.6); CPK CREATINE PHOSPHOKINASE 98 U/L (26-192); CREATININE FOR GFR 0.91 MG/DL (0.55-1.30); FERRITIN 42 NG/ML (8-252); GLOMERULAR FILTRATION RATE > 60.0 (>32); GLUCOSE, FASTING 122 MG/DL (70-100); MAGNESIUM LEVEL 1.9 MG/DL (1.8-2.4); MB/CK RELATIVE INDEX 3.78 (< OR =4); NT-PRO BNP 1723 PG/ML (<450); POTASSIUM SERUM 3.2 MEQ/L (3.5-5.1); SODIUM LEVEL 143 MEQ/L (136-145); TOTAL PROTEIN 6.7 GM/DL (6.4-8.2); TROPONIN I < 0.02 NG/ML (< 0.10)
== END ==
LOC: M LAB 18:08
PROVIDERS: ATTEND Student in an Organized Health Care Education/Training Program
DX: R06.02 Shortness of breath (principal)

== ENCOUNTER → 2021-06-05 | Outpatient (CLI) | payer OTHER ==
[2021-06-05 14:07] LABS: ALBUMIN 3.4 GM/DL (3.2-5.2); ALT/SGPT 49 U/L (12-78); BILIRUBIN,TOTAL 0.6 MG/DL (0.2-1.0); BLOOD UREA NITROGEN 21 MG/DL (7-18); CALCIUM LEVEL 9.3 MG/DL (8.8-10.2); CARBON DIOXIDE LEVEL 28 MEQ/L (21-32); CHLORIDE LEVEL 109 MEQ/L (98-107); CK-MB VALUE MASS 3.4 NG/ML (<3.6); CPK CREATINE PHOSPHOKINASE 84 U/L (26-192); CREATININE FOR GFR 1.07 MG/DL (0.55-1.30); GLOMERULAR FILTRATION RATE 52.3 (>32); GLUCOSE, FASTING 147 MG/DL (70-100); MB/CK RELATIVE INDEX 4.05 (< OR =4); NT-PRO BNP 1763 PG/ML (<450); POTASSIUM SERUM 3.2 MEQ/L (3.5-5.1); SODIUM LEVEL 143 MEQ/L (136-145); TROPONIN I < 0.02 NG/ML (< 0.10)
== END ==
LOC: M LAB 12:54
PROVIDERS: ATTEND Student in an Organized Health Care Education/Training Program
DX: R06.02 Shortness of breath (principal)

== ENCOUNTER → 2021-06-07 | Outpatient (CLI) | payer OTHER ==
[2021-06-07 14:01] LABS: BLOOD UREA NITROGEN 25 MG/DL (7-18); CALCIUM LEVEL 9.3 MG/DL (8.8-10.2); CARBON DIOXIDE LEVEL 27 MEQ/L (21-32); CHLORIDE LEVEL 109 MEQ/L (98-107); CK-MB VALUE MASS 2.6 NG/ML (<3.6); CPK CREATINE PHOSPHOKINASE 84 U/L (26-192); CREATININE FOR GFR 1.06 MG/DL (0.55-1.30); GLOMERULAR FILTRATION RATE 52.8 (>32); GLUCOSE, FASTING 144 MG/DL (70-100); POTASSIUM SERUM 3.7 MEQ/L (3.5-5.1); SODIUM LEVEL 143 MEQ/L (136-145); TROPONIN I < 0.02 NG/ML (< 0.10)
== END ==
LOC: M LAB 12:43
PROVIDERS: ATTEND Student in an Organized Health Care Education/Training Program
DX: R06.02 Shortness of breath (principal); E87.6 Hypokalemia

== ENCOUNTER → 2021-06-10 | Outpatient (CLI) | payer OTHER ==
--- NOTE | 2021-06-15 00:24 | HOLTMON ---
[facility] Test Date: 2021-06-10 Pat Name: FOREST ALMARAZ Department: Room: - Gender: Female [place]: PATRICIA : [id number] Requested By: Kathleen Palomares Order Number: [id number] Reading MD: Mehdi Alejo Interpretive Statements Atrial fibrillation noted with a maximum heart of 113 bpm noted at 8:10:23 AM and a minimum heart rate of 37 bpm at 2:12:21 AM. No significant pause. Moderate isolated PVCs, including couplets, trigeminy. No ventricular run. Symptoms: None. Electronically Signed on 06-15-2021 0:24:52 EDT by Mehdi Alejo
== END ==
LOC: M EKG 09:59
PROVIDERS: ATTEND Student in an Organized Health Care Education/Training Program
DX: I48.91 Unspecified atrial fibrillation (principal); R06.02 Shortness of breath

== ENCOUNTER → 2021-07-12 | Outpatient (CLI) | payer OTHER ==
--- NOTE | 2021-07-13 11:29 | ECHO ---
ECHOCARDIOGRAM DATE OF PROCEDURE: 07/12/2021 Age: Gender: Female Height: 157 cm Weight: 88 kg REFERRING PHYSICIAN: Marilin Benítez D.O. INDICATION: Atrial fibrillation. MEASUREMENTS: IVS 0.9 cm LV 4.6 cm LVPW 1.0 cm LA 2.5 cm Aorta 3.9 cm Let atrial volume index 35 IVC 1.2 cm FINDINGS: This study is of limited technical quality with very challenging visualization. Underlying atrial fibrillation with controlled rate. Left ventricle is normal size and overall mildly reduced left ventricular systolic function based on gross estimate. Because of limitation of the images, I cannot rule out segmental wall motion abnormalities. Overall, mildly reduced left ventricular systolic function. Estimated left ventricular ejection fraction (LVEF) of approximately 45-50%. Right ventricle appears normal. There is biatrial enlargement. Aortic valve is sclerotic, but has three cusps and preserved mobility. There are also mild degenerative abnormalities of mitral valve with mitral annular calcifications and thickening of mitral leaflets. Mobility is preserved. Tricuspid valve appears normal. Pulmonic valve also appears normal. No pericardial effusion is noted. Inferior vena cava is of normal size. Aortic root and abdominal aorta appear normal. Aortic arch was not well seen. Doppler interrogation reveals no aortic stenosis and trivial aortic insufficiency. There is also trace mitral and tricuspid insufficiency. Calculated pulmonary artery pressure is around 30, corresponding to upper limits of normal values. Evaluation of diastolic function is inconclusive due to underlying atrial fibrillation. CONCLUSIONS: 1. Study is of limited technical quality. Underlying atrial fibrillation with controlled rate. 2. Normal left ventricular (LV) size with mildly reduced LV systolic function due to global hypokinesis. Estimated left ventricular ejection fraction (LVEF) approximately 45-50%. 3. Aortic sclerosis with no stenosis and trace insufficiency. 4. Trace mitral and tricuspid insufficiency. 5. Normal central venous pressure and borderline pulmonary hypertension. 6. Biatrial enlargement. MTDD
== END ==
LOC: M CARPUL 10:13
PROVIDERS: ATTEND Student in an Organized Health Care Education/Training Program
DX: I48.91 Unspecified atrial fibrillation (principal); I08.8 Other rheumatic multiple valve diseases

== ENCOUNTER → 2021-07-22 | Outpatient (REF) | payer OTHER ==
[2021-07-22 13:29] LABS: HEMATOCRIT 42.8 % (36.0-47.0); HEMOGLOBIN 13.4 g/dl (12.0-15.5); MEAN CORPUSCULAR HEMOGLOBIN 29.1 pg (27.0-33.0); MEAN CORPUSCULAR HGB CONC 31.3 g/dl (32.0-36.5); PLATELET COUNT, AUTOMATED 279 10^3/uL (150-450); WHITE BLOOD COUNT 11.4 10^3/uL (4.0-10.0)
[2021-07-22 13:47] LABS: HEMOGLOBIN A1c 7.1 %
[2021-07-22 14:11] LABS: ALBUMIN 3.2 GM/DL (3.2-5.2); BILIRUBIN,TOTAL 0.4 MG/DL (0.2-1.0); CALCIUM LEVEL 9.3 MG/DL (8.8-10.2); CHOLESTEROL RISK RATIO 2.489 (<5); CREATININE FOR GFR 1.09 MG/DL (0.55-1.30); GLOMERULAR FILTRATION RATE 51.2 (>32); POTASSIUM SERUM 4.3 MEQ/L (3.5-5.1); TOTAL 25(OH) VITAMIN D 29.7 NG/ML (30.0-100.0); TOTAL PROTEIN 6.1 GM/DL (6.4-8.2); URIC ACID 3.9 MG/DL (2.6-6.0)
[2021-07-22 14:14] LABS: CREATININE, URINE 16.1 MG/DL
== END ==
LOC: M SFHCADAM 09:11
PROVIDERS: ATTEND Student in an Organized Health Care Education/Training Program
DX: E11.9 Type 2 diabetes mellitus without complications (principal); E78.5 Hyperlipidemia, unspecified; I12.9 Hypertensive chronic kidney disease with stage 1 through stage 4 chronic kidney disease, or unspecified chronic kidney disease; N18.30 Chronic kidney disease, stage 3 unspecified; I50.30 Unspecified diastolic (congestive) heart failure; M85.89 Other specified disorders of bone density and structure, multiple sites; M1A.9XX0 Chronic gout, unspecified, without tophus (tophi)

== ENCOUNTER → 2021-08-01 | Outpatient (REF) | payer OTHER ==
[2021-08-02 11:34] LABS: CREATININE, URINE 75.4 MG/DL; CREATININE,RANDOM URINE 75.4 MG/DL; MAU/CREAT RATIO 2042.4 MCG/MG (0.0-30.0)
== END ==
LOC: M SFHCPLAZ 15:34
DX: R80.9 Proteinuria, unspecified (principal)

== ENCOUNTER → 2021-08-22 | Outpatient (REF) | payer OTHER | LOC: M LAB REF 16:49 | PROVIDERS: ATTEND Nurse Practitioner Family | DX: N18.32 Chronic kidney disease, stage 3b (principal) ==

== ENCOUNTER → 2021-10-08 | Outpatient (REF) | payer OTHER ==
[2021-10-08 14:06] LABS: CREATININE, URINE 31.6 MG/DL; CREATININE,RANDOM URINE 31.6 MG/DL; MAU/CREAT RATIO 1579.1 MCG/MG (0.0-30.0)
== END ==
LOC: M SFHCPLAZ 12:35
PROVIDERS: ATTEND Student in an Organized Health Care Education/Training Program
DX: R80.9 Proteinuria, unspecified (principal)

== ENCOUNTER → 2022-08-11 | Outpatient (REF) | payer OTHER ==
[~2022-08-11] MED LIST changes: +FENO67CA12 PO; -FENO67CA6 PO; +LOSA100T45 PO; -LOSA100T50 PO
[2022-08-11 14:29] LABS: HEMATOCRIT 44.5 % (36.0-47.0); HEMOGLOBIN 14.2 g/dl (12.0-15.5); MEAN CORPUSCULAR HEMOGLOBIN 31.3 pg (27.0-33.0); MEAN CORPUSCULAR HGB CONC 31.9 g/dl (32.0-36.5); PLATELET COUNT, AUTOMATED 244 10^3/uL (150-450); RED BLOOD COUNT 4.54 10^6/uL (4.00-5.40); WHITE BLOOD COUNT 9.9 10^3/uL (4.0-10.0)
[2022-08-11 16:27] LABS: ALBUMIN 3.5 GM/DL (3.2-5.2); BILIRUBIN,TOTAL 0.5 MG/DL (0.2-1.0); CALCIUM LEVEL 9.6 MG/DL (8.8-10.2); CHOLESTEROL RISK RATIO 1.827 (<5); CREATININE FOR GFR 1.11 MG/DL (0.55-1.30); POTASSIUM SERUM 4.2 MEQ/L (3.5-5.1); TOTAL 25(OH) VITAMIN D 28.5 NG/ML (30.0-100.0); TOTAL PROTEIN 6.5 GM/DL (6.4-8.2)
[2022-08-11 22:30] LABS: HEMOGLOBIN A1c 7.9 %
== END ==
LOC: M SFHCADAM 09:35
PROVIDERS: ATTEND Student in an Organized Health Care Education/Training Program
DX: E11.21 Type 2 diabetes mellitus with diabetic nephropathy (principal); I10 Essential (primary) hypertension; E78.5 Hyperlipidemia, unspecified; M81.0 Age-related osteoporosis without current pathological fracture

== ENCOUNTER → 2022-08-13 | Outpatient (CLI) | payer OTHER | LOC: M PLAIMG 09:41 | PROVIDERS: ATTEND Student in an Organized Health Care Education/Training Program | DX: M16.0 Bilateral primary osteoarthritis of hip (principal) ==

== ENCOUNTER 2022-10-15 12:11 | Inpatient (IN) | payer MEDICARE, OTHER ==
[~2022-10-15] VITALS: Ht 154.9 cm; Wt 93.3 kg
[~2022-10-15 12:11] MED LIST changes: -FENO67CA12 PO; +FENO67CA16 PO
[2022-10-15 12:45] LABS: BASO # 0.1 10^3/uL (0.0-0.2); BASO % 0.6 % (0.0-1.0); EOS # 0.2 10^3/uL (0.0-0.5); EOS % 1.9 % (0.0-3.0); HEMATOCRIT 44.4 % (36.0-47.0); HEMOGLOBIN 14.6 g/dl (12.0-15.5); LYMPH # 1.8 10^3/uL (1.5-5.0); LYMPH % 16.4 % (24.0-44.0); MEAN CORPUSCULAR HEMOGLOBIN 30.7 pg (27.0-33.0); MEAN CORPUSCULAR HGB CONC 32.9 g/dl (32.0-36.5); MEAN CORPUSCULAR VOLUME 93.5 fl (80.0-96.0); MONO # 0.6 10^3/uL (0.0-0.8); MONO % 5.8 % (2.0-8.0); NEUTROPHILS % 74.7 % (36.0-66.0); PLATELET COUNT, AUTOMATED 244 10^3/uL (150-450); RED BLOOD COUNT 4.75 10^6/uL (4.00-5.40); WHITE BLOOD COUNT 10.7 10^3/uL (4.0-10.0)
[2022-10-15 13:11] LABS: GLOMERULAR FILTRATION RATE 56.4 (>32); POTASSIUM SERUM 3.9 MMOL/L (3.5-5.1)
[2022-10-15] MEDS ORDERED: MORPHINE 2 MG/ML 1ML VIAL IV ONE (13:40)
[2022-10-15] MEDS ORDERED: ONDANSETRON 4MG 2ML VIAL IV ONE (13:40)
[2022-10-15] MEDS ORDERED: NORCO, ANEXSIA 5/325MG TABLET (HYDROcodone/ACETAMINOPHEN) PO ONE (14:20)
[2022-10-15] MEDS ORDERED: ONDANSETRON 4MG ORAL DISINTEGRATING TAB PO ONE (15:25)
[2022-10-15 16:15] LABS: RSV AMPLIFICATION NEGATIVE (NEGATIVE)
[2022-10-15] MEDS ORDERED: METOCLOPRAMIDE INJ 10MG/2ML VIAL IV ONE (16:20)
[2022-10-15] MEDS ORDERED: ECOT81TA5 PO (17:13)
[2022-10-15] MEDS ORDERED: ELIQ5TAB PO (17:13)
[2022-10-15] MEDS ORDERED: FURO40TA2 PO (17:14)
[2022-10-15] MEDS ORDERED: FARX1TAB3 PO (17:51)
[2022-10-15] MEDS ORDERED: POTA-141 PO (17:52)
[2022-10-15] MEDS ORDERED: SIMV20TA22 PO (17:52)
[2022-10-15] MEDS ORDERED: OXYC-517 PO (17:53)
[2022-10-15] MEDS ORDERED: GLUCAGON INJ 1MG VIAL SC PRN (17:55)
[2022-10-15] MEDS ORDERED: DEXTROSE 50% 50ML SYRINGE IV PRN (17:55)
[2022-10-15] MEDS ORDERED: GLUCOSE 4GM CHEW TABLET PO PRN (17:55)
[2022-10-15] MEDS ORDERED: LOSA50TA28 PO (17:55)
[2022-10-15] MEDS ORDERED: RA T500C2 PO (18:09)
[2022-10-15] MEDS ORDERED: PRESCAP PO (18:09)
[2022-10-15] MEDS ORDERED: GABA-283 PO (18:13)
[2022-10-15] MEDS ORDERED: HOME MED LIST COMPLETE! XX SCH (18:15)
[2022-10-15] MEDS: INSULIN LISPRO (NovoLOG) PER UNIT SC SCH ×2 (18:30→21:47)
[2022-10-15] MEDS: ACETAMINOPHEN 500 MG TAB PO SCH (18:34)
[2022-10-15] MEDS ORDERED: LOSARTAN 25 MG TAB PO SCH (21:00)
[2022-10-15 21:15] VITALS: BP 130/79
[2022-10-15] MEDS ORDERED: RAMELTEON 8 MG TAB (ROZEREM) PO PRN (21:40)
[2022-10-15] MEDS: MORPHINE 2 MG/ML 1ML VIAL IV PRN (21:47)
[2022-10-15] MEDS: ASPIRIN 81MG ENTERIC TABLET PO SCH (22:08)
[2022-10-15] MEDS: GABAPENTIN 400MG CAP PO SCH (22:08)
[2022-10-15] MEDS: SIMVASTATIN 20 MG TAB PO SCH (22:08)
[2022-10-15] MEDS: oxyCODONE 5MG TAB PO PRN (23:55)
[2022-10-16] MEDS: traMADol 50 MG TAB PO PRN ×2 (00:56→11:11)
[2022-10-16] MEDS ORDERED: ONDANSETRON 4MG 2ML VIAL IV PRN (02:05)
[2022-10-16] MEDS ORDERED: HYDROMORPHONE HCL 0.5 MG/ 0.5 ML SYRINGE IV ONE (03:00)
[2022-10-16 05:10] LABS: HEMATOCRIT 36.4 % (36.0-47.0); MEAN CORPUSCULAR HEMOGLOBIN 30.9 pg (27.0-33.0); MEAN CORPUSCULAR VOLUME 93.8 fl (80.0-96.0); PLATELET COUNT, AUTOMATED 226 10^3/uL (150-450); RED BLOOD COUNT 3.88 10^6/uL (4.00-5.40); WHITE BLOOD COUNT 15.4 10^3/uL (4.0-10.0)
[2022-10-16 05:32] LABS: MAGNESIUM LEVEL 2.1 MG/DL (1.8-2.4)
[2022-10-16 05:33] LABS: CALCIUM LEVEL 8.8 MG/DL (8.3-10.6); CREATININE FOR GFR 1.49 MG/DL (0.55-1.30); GLOMERULAR FILTRATION RATE 35.6 (>32); PHOSPHORUS LEVEL 5.2 MG/DL (2.4-5.1); POTASSIUM SERUM 4.3 MMOL/L (3.5-5.1)
[2022-10-16] MEDS: oxyCODONE 5MG TAB PO PRN ×3 (05:55→18:57)
[2022-10-16 06:00] VITALS: BP 101/56
[2022-10-16] MEDS ORDERED: HEPARIN SOD (PORCINE) 5000UNITS/ML 1ML VIAL/SYRINGE SQ SCH (06:00)
[2022-10-16] MEDS ORDERED: NS 1,000 ML IV SCH (07:15)
[2022-10-16 07:39] VITALS: BP 125/59
[2022-10-16] MEDS: MORPHINE 2 MG/ML 1ML VIAL IV PRN ×2 (08:34→14:52)
[2022-10-16] MEDS: allopurinoL 100 MG TAB PO SCH (09:18)
[2022-10-16] MEDS: OCUVITE 1 TAB PO SCH ×2 (09:18→22:09)
[2022-10-16] MEDS: INSULIN LISPRO (NovoLOG) PER UNIT SC SCH ×4 (09:19→21:00)
[2022-10-16] MEDS: GABAPENTIN 400MG CAP PO SCH ×3 (09:20→22:08)
[2022-10-16] MEDS: ACETAMINOPHEN 500 MG TAB PO SCH ×2 (09:20→22:09)
[2022-10-16] MEDS ORDERED: FLUBLOK(EGG FREE)(QUAD)INFLUENZA VACC 0.5ML SYRINGE 18YRS & OLDER IM.IMMUN ONE (12:00)
[2022-10-16] MEDS: HEPARIN SOD (PORCINE) 5000UNITS/ML 1ML VIAL/SYRINGE SQ SCH ×2 (13:27→22:11)
[2022-10-16 16:00] VITALS: BP 133/60
[2022-10-16 16:00] LABS: HEMATOCRIT 35.3 % (36.0-47.0); HEMOGLOBIN 11.6 g/dl (12.0-15.5); MEAN CORPUSCULAR HEMOGLOBIN 31.2 pg (27.0-33.0); MEAN CORPUSCULAR HGB CONC 32.9 g/dl (32.0-36.5); MEAN CORPUSCULAR VOLUME 94.9 fl (80.0-96.0); PLATELET COUNT, AUTOMATED 187 10^3/uL (150-450); RED BLOOD COUNT 3.72 10^6/uL (4.00-5.40); WHITE BLOOD COUNT 13.2 10^3/uL (4.0-10.0)
[2022-10-16 16:27] LABS: CALCIUM LEVEL 8.4 MG/DL (8.3-10.6); CREATININE FOR GFR 1.41 MG/DL (0.55-1.30); GLOMERULAR FILTRATION RATE 37.9 (>32); POTASSIUM SERUM 4.3 MMOL/L (3.5-5.1)
[2022-10-16 20:27] VITALS: BP 147/71
[2022-10-16] MEDS: SIMVASTATIN 20 MG TAB PO SCH (22:08)
[2022-10-16] MEDS: ASPIRIN 81MG ENTERIC TABLET PO SCH (22:09)
[2022-10-17 00:42] VITALS: BP 116/59
[2022-10-17] MEDS: oxyCODONE 5MG TAB PO PRN ×4 (01:38→21:59)
[2022-10-17 04:22] VITALS: BP 141/64
[2022-10-17] MEDS: HEPARIN SOD (PORCINE) 5000UNITS/ML 1ML VIAL/SYRINGE SQ SCH ×3 (06:02→20:42)
[2022-10-17 07:25] VITALS: BP 142/77
[2022-10-17] MEDS: INSULIN LISPRO (NovoLOG) PER UNIT SC SCH ×4 (08:20→20:41)
[2022-10-17] MEDS: OCUVITE 1 TAB PO SCH ×2 (08:21→20:41)
[2022-10-17] MEDS: GABAPENTIN 400MG CAP PO SCH ×3 (08:21→20:41)
[2022-10-17] MEDS: ACETAMINOPHEN 500 MG TAB PO SCH ×2 (08:22→20:41)
[2022-10-17] MEDS: allopurinoL 100 MG TAB PO SCH (08:57)
[2022-10-17 10:53] LABS: PERCENT SATURATION 5.6 % (13.2-45.0)
[2022-10-17 10:54] LABS: FERRITIN 56.7 NG/ML (7.3-270.7)
[2022-10-17 10:55] LABS: FOLATE 14.83 NG/ML (>5.4)
[2022-10-17] MEDS: traMADol 50 MG TAB PO PRN (12:29)
[2022-10-17] MEDS ORDERED: IRON SUCROSE 200 MG in NS 100 ML IV ONE (15:00)
[2022-10-17 16:00] VITALS: BP 143/62
[2022-10-17] MEDS: FUROSEMIDE 40 MG TAB PO SCH (17:10)
[2022-10-17 20:00] VITALS: BP 158/86
[2022-10-17] MEDS: ASPIRIN 81MG ENTERIC TABLET PO SCH (20:41)
[2022-10-17] MEDS: SIMVASTATIN 20 MG TAB PO SCH (20:41)
[2022-10-17] MEDS ORDERED: LIDOCAINE 1% MDV 20ML VIAL SC ONE (21:25)
[2022-10-18] VITALS (8 sets, daily range): BP systolic 139–183; BP diastolic 62–103
[2022-10-18] MEDS: MORPHINE 2 MG/ML 1ML VIAL IV PRN ×2 (03:12→09:21)
[2022-10-18] MEDS: oxyCODONE 5MG TAB PO PRN ×3 (04:09→20:27)
[2022-10-18 04:36] LABS: HEMATOCRIT 33.1 % (36.0-47.0); HEMOGLOBIN 10.7 g/dl (12.0-15.5); MEAN CORPUSCULAR HGB CONC 32.3 g/dl (32.0-36.5); MEAN CORPUSCULAR VOLUME 95.9 fl (80.0-96.0); PLATELET COUNT, AUTOMATED 170 10^3/uL (150-450); RED BLOOD COUNT 3.45 10^6/uL (4.00-5.40); WHITE BLOOD COUNT 11.8 10^3/uL (4.0-10.0)
[2022-10-18 04:57] LABS: MAGNESIUM LEVEL 2.1 MG/DL (1.8-2.4)
[2022-10-18 05:03] LABS: BLOOD UREA NITROGEN 31 MG/DL (9-23); CALCIUM LEVEL 8.7 MG/DL (8.3-10.6); CARBON DIOXIDE LEVEL 29 MMOL/L (20-31); CHLORIDE LEVEL 97 MMOL/L (98-107); CREATININE FOR GFR 0.94 MG/DL (0.55-1.30); GLOMERULAR FILTRATION RATE > 60.0 (>32); GLUCOSE, FASTING 191 MG/DL (74-106); PHOSPHORUS LEVEL 2.7 MG/DL (2.4-5.1); SODIUM LEVEL 134 MMOL/L (136-145)
[2022-10-18] MEDS: traMADol 50 MG TAB PO PRN ×2 (05:46→14:22)
[2022-10-18] MEDS: HEPARIN SOD (PORCINE) 5000UNITS/ML 1ML VIAL/SYRINGE SQ SCH (05:47)
[2022-10-18] MEDS: GABAPENTIN 400MG CAP PO SCH ×3 (08:10→20:27)
[2022-10-18] MEDS: FUROSEMIDE 40 MG TAB PO SCH ×2 (08:10→17:00)
[2022-10-18] MEDS: ACETAMINOPHEN 500 MG TAB PO SCH ×2 (08:10→21:00)
[2022-10-18] MEDS: allopurinoL 100 MG TAB PO SCH (08:10)
[2022-10-18] MEDS: DOCUSATE SODIUM 100MG CAPSULE PO SCH (08:10)
[2022-10-18] MEDS: OCUVITE 1 TAB PO SCH ×2 (08:10→20:36)
[2022-10-18] MEDS: FERROUS SULFATE 325MG TAB PO SCH (08:11)
[2022-10-18] MEDS: INSULIN LISPRO (NovoLOG) PER UNIT SC SCH ×4 (08:11→20:16)
[2022-10-18] MEDS ORDERED: K-PHOS NEUTRAL 250MG TABLET (SOD.PHOSPHATE/POT.PHOSPHATE) PO ONE (09:00)
[2022-10-18] MEDS ORDERED: IRON SUCROSE 200 MG in NS 100 ML IV ONE (11:00)
[2022-10-18] MEDS ORDERED: ceFAZolin 2 GM/D5W 50 ML IV BAG As Ordered ONE (17:16)
[2022-10-18] MEDS ORDERED: CLINDAMYCIN 900MG/50ML PREMIX BAG As Ordered ONE (17:24)
[2022-10-18] MEDS ORDERED: LIDOCAINE 2% 100MG/5ML SDV (FOR ANES.) As Ordered ONE (17:54)
[2022-10-18] MEDS ORDERED: ETOMIDATE INJ 20MG/10ML VIAL As Ordered ONE (17:54)
[2022-10-18] MEDS ORDERED: METOCLOPRAMIDE INJ 10MG/2ML VIAL As Ordered ONE (17:54)
[2022-10-18] MEDS ORDERED: MIDAZOLAM INJ 2MG/2ML VIAL As Ordered ONE (17:54)
[2022-10-18] MEDS ORDERED: propofoL 200 MG/20 ML VIAL As Ordered ONE (17:54)
[2022-10-18] MEDS ORDERED: fentaNYL 100 MCG/2 ML INJECTION As Ordered ONE (17:54)
[2022-10-18] MEDS ORDERED: ACETAMINOPHEN 1000MG 100ML IV BAG As Ordered ONE (17:54)
[2022-10-18] MEDS ORDERED: BUPIVACAINE/EPIN 0.5% 30ML VIAL As Ordered ONE (18:06)
[2022-10-18] MEDS ORDERED: LIDOCAINE 1% SDV 30ML VIAL As Ordered ONE (18:06)
[2022-10-18] MEDS ORDERED: ONDANSETRON 4MG 2ML VIAL IV PRN (19:10)
[2022-10-18] MEDS ORDERED: oxyCODONE 5MG TAB PO PRN (19:10)
[2022-10-18] MEDS ORDERED: fentaNYL 100 MCG/2 ML INJECTION IV PRN (19:10)
[2022-10-18] MEDS: SIMVASTATIN 20 MG TAB PO SCH (20:27)
[2022-10-19] VITALS (8 sets, daily range): BP systolic 138–172; BP diastolic 65–76
[2022-10-19] MEDS ORDERED: UNRESOLVED CLARIFICATION ENTRY XX SCH (00:01)
[2022-10-19] MEDS: CLINDAMYCIN 900 MG in IV 1 EA IV SCH ×3 (02:35→18:27)
[2022-10-19] MEDS: traMADol 50 MG TAB PO PRN ×2 (02:36→21:28)
[2022-10-19] MEDS: oxyCODONE 5MG TAB PO PRN ×3 (05:24→23:03)
[2022-10-19 06:12] LABS: HEMOGLOBIN 10.7 g/dl (12.0-15.5); MEAN CORPUSCULAR HEMOGLOBIN 31.2 pg (27.0-33.0); MEAN CORPUSCULAR HGB CONC 32.4 g/dl (32.0-36.5); MEAN CORPUSCULAR VOLUME 96.2 fl (80.0-96.0); PLATELET COUNT, AUTOMATED 164 10^3/uL (150-450); RED BLOOD COUNT 3.43 10^6/uL (4.00-5.40); WHITE BLOOD COUNT 8.8 10^3/uL (4.0-10.0)
[2022-10-19 06:37] LABS: MAGNESIUM LEVEL 1.9 MG/DL (1.8-2.4)
[2022-10-19 06:45] LABS: BLOOD UREA NITROGEN 30 MG/DL (9-23); CALCIUM LEVEL 7.9 MG/DL (8.3-10.6); CARBON DIOXIDE LEVEL 24 MMOL/L (20-31); CHLORIDE LEVEL 98 MMOL/L (98-107); CREATININE FOR GFR 0.85 MG/DL (0.55-1.30); GLOMERULAR FILTRATION RATE > 60.0 (>32); GLUCOSE, FASTING 254 MG/DL (74-106); PHOSPHORUS LEVEL 4.3 MG/DL (2.4-5.1); POTASSIUM SERUM 4.5 MMOL/L (3.5-5.1); SODIUM LEVEL 135 MMOL/L (136-145)
[2022-10-19] MEDS: ACETAMINOPHEN 500 MG TAB PO SCH ×2 (09:22→21:27)
[2022-10-19] MEDS: GABAPENTIN 400MG CAP PO SCH ×3 (09:22→21:27)
[2022-10-19] MEDS: DOCUSATE SODIUM 100MG CAPSULE PO SCH (09:22)
[2022-10-19] MEDS: FERROUS SULFATE 325MG TAB PO SCH (09:22)
[2022-10-19] MEDS: FUROSEMIDE 40 MG TAB PO SCH ×2 (09:22→17:00)
[2022-10-19] MEDS: OCUVITE 1 TAB PO SCH ×2 (09:23→21:27)
[2022-10-19] MEDS: allopurinoL 100 MG TAB PO SCH (09:27)
[2022-10-19] MEDS: INSULIN LISPRO (NovoLOG) PER UNIT SC SCH ×4 (09:27→21:29)
[2022-10-19] MEDS: MORPHINE 2 MG/ML 1ML VIAL IV PRN ×2 (12:04→19:23)
[2022-10-19] MEDS: SIMVASTATIN 20 MG TAB PO SCH (21:27)
[2022-10-19] MEDS: APIXABAN 5 MG TAB (ELIQUIS) PO SCH (21:27)
[2022-10-19] MEDS: LEVEMIR (INSULIN DETEMIR) 1 UNITS/0.01ML SC SCH (21:29)
[2022-10-20 04:14] VITALS: BP 142/68
[2022-10-20 05:06] LABS: HEMATOCRIT 30.5 % (36.0-47.0); HEMOGLOBIN 9.8 g/dl (12.0-15.5); MEAN CORPUSCULAR HGB CONC 32.1 g/dl (32.0-36.5); MEAN CORPUSCULAR VOLUME 96.5 fl (80.0-96.0); PLATELET COUNT, AUTOMATED 210 10^3/uL (150-450); RED BLOOD COUNT 3.16 10^6/uL (4.00-5.40); WHITE BLOOD COUNT 9.9 10^3/uL (4.0-10.0)
[2022-10-20 05:34] LABS: MAGNESIUM LEVEL 1.9 MG/DL (1.8-2.4)
[2022-10-20 05:39] LABS: BLOOD UREA NITROGEN 33 MG/DL (9-23); CALCIUM LEVEL 7.5 MG/DL (8.3-10.6); CARBON DIOXIDE LEVEL 28 MMOL/L (20-31); CHLORIDE LEVEL 100 MMOL/L (98-107); CREATININE FOR GFR 0.87 MG/DL (0.55-1.30); GLOMERULAR FILTRATION RATE > 60.0 (>32); GLUCOSE, FASTING 136 MG/DL (74-106); PHOSPHORUS LEVEL 2.5 MG/DL (2.4-5.1); SODIUM LEVEL 136 MMOL/L (136-145)
[2022-10-20] MEDS: oxyCODONE 5MG TAB PO PRN ×2 (05:46→15:10)
[2022-10-20 07:27] VITALS: BP 158/80
[2022-10-20] MEDS: MORPHINE 2 MG/ML 1ML VIAL IV PRN ×2 (08:32→16:28)
[2022-10-20] MEDS: APIXABAN 5 MG TAB (ELIQUIS) PO SCH ×2 (08:33→20:27)
[2022-10-20] MEDS: DOCUSATE SODIUM 100MG CAPSULE PO SCH (08:33)
[2022-10-20] MEDS: OCUVITE 1 TAB PO SCH ×2 (08:33→20:27)
[2022-10-20] MEDS: FERROUS SULFATE 325MG TAB PO SCH (08:33)
[2022-10-20] MEDS: allopurinoL 100 MG TAB PO SCH (08:33)
[2022-10-20] MEDS: GABAPENTIN 400MG CAP PO SCH ×3 (08:33→20:27)
[2022-10-20] MEDS: ACETAMINOPHEN 500 MG TAB PO SCH ×2 (08:34→20:27)
[2022-10-20] MEDS: FUROSEMIDE 40 MG TAB PO SCH ×2 (08:34→16:29)
[2022-10-20] MEDS: MAG SULF 1GM/100ML (MAG RUN) 1 GM in IV 1 EA IV SCH ×2 (08:35→09:47)
[2022-10-20] MEDS: INSULIN LISPRO (NovoLOG) PER UNIT SC SCH ×4 (08:36→20:28)
[2022-10-20] MEDS ORDERED: ANALGESIC BALM CRM 3OZ TOP PRN (09:05)
[2022-10-20] MEDS: traMADol 50 MG TAB PO PRN ×2 (10:01→17:56)
[2022-10-20] MEDS: CEPHALEXIN 500 MG CAP PO SCH ×4 (10:03→23:48)
[2022-10-20 16:00] VITALS: BP 145/71
[2022-10-20] MEDS ORDERED: SENNA 8.6 MG TAB (SENOKOT) PO PRN (17:10)
[2022-10-20 20:00] VITALS: BP 162/69
[2022-10-20] MEDS: SIMVASTATIN 20 MG TAB PO SCH (20:27)
[2022-10-20] MEDS: LEVEMIR (INSULIN DETEMIR) 1 UNITS/0.01ML SC SCH (20:28)
[2022-10-21] VITALS (17 sets, daily range): BP systolic 120–188; BP diastolic 62–110
[2022-10-21] MEDS: oxyCODONE 5MG TAB PO PRN ×3 (02:02→20:26)
[2022-10-21] MEDS: CEPHALEXIN 500 MG CAP PO SCH ×4 (05:11→23:43)
[2022-10-21 05:46] LABS: HEMATOCRIT 35.8 % (36.0-47.0); HEMOGLOBIN 11.4 g/dl (12.0-15.5); MEAN CORPUSCULAR HEMOGLOBIN 30.8 pg (27.0-33.0); MEAN CORPUSCULAR HGB CONC 31.8 g/dl (32.0-36.5); MEAN CORPUSCULAR VOLUME 96.8 fl (80.0-96.0); PLATELET COUNT, AUTOMATED 200 10^3/uL (150-450); WHITE BLOOD COUNT 12.9 10^3/uL (4.0-10.0)
[2022-10-21 06:15] LABS: MAGNESIUM LEVEL 1.9 MG/DL (1.8-2.4)
[2022-10-21 06:18] LABS: BLOOD UREA NITROGEN 26 MG/DL (9-23); CALCIUM LEVEL 8.3 MG/DL (8.3-10.6); CARBON DIOXIDE LEVEL 26 MMOL/L (20-31); CHLORIDE LEVEL 101 MMOL/L (98-107); CREATININE FOR GFR 0.78 MG/DL (0.55-1.30); GLOMERULAR FILTRATION RATE > 60.0 (>32); GLUCOSE, FASTING 153 MG/DL (74-106); PHOSPHORUS LEVEL 2.1 MG/DL (2.4-5.1); POTASSIUM SERUM 4.1 MMOL/L (3.5-5.1); SODIUM LEVEL 139 MMOL/L (136-145)
[2022-10-21] MEDS: INSULIN LISPRO (NovoLOG) PER UNIT SC SCH ×4 (08:48→20:25)
[2022-10-21] MEDS: MAG SULF 1GM/100ML (MAG RUN) 1 GM in IV 1 EA IV SCH ×2 (08:48→10:11)
[2022-10-21] MEDS: ACETAMINOPHEN 500 MG TAB PO SCH ×2 (08:50→20:26)
[2022-10-21] MEDS: DOCUSATE SODIUM 100MG CAPSULE PO SCH (08:50)
[2022-10-21] MEDS: MORPHINE 2 MG/ML 1ML VIAL IV PRN (08:50)
[2022-10-21] MEDS: FERROUS SULFATE 325MG TAB PO SCH (08:51)
[2022-10-21] MEDS: APIXABAN 5 MG TAB (ELIQUIS) PO SCH ×2 (08:51→20:26)
[2022-10-21] MEDS: GABAPENTIN 400MG CAP PO SCH ×3 (08:51→20:26)
[2022-10-21] MEDS: OCUVITE 1 TAB PO SCH ×2 (08:51→20:26)
[2022-10-21] MEDS: FUROSEMIDE 40 MG TAB PO SCH ×2 (08:51→17:17)
[2022-10-21] MEDS: allopurinoL 100 MG TAB PO SCH (10:03)
[2022-10-21] MEDS ORDERED: MIRA3350 PO (11:20)
[2022-10-21] MEDS ORDERED: SENN18TA PO (11:20)
[2022-10-21] MEDS ORDERED: CEPH500C PO (11:20)
[2022-10-21] MEDS ORDERED: ACET500P3 PO (11:23)
[2022-10-21] MEDS ORDERED: LABETALOL 100MG/20ML VIAL IV STA (11:27)
[2022-10-21] MEDS ORDERED: LACTULOSE 20GM/30ML SYRUP UDC PO ONE (12:00)
[2022-10-21] MEDS ORDERED: LABETALOL 100MG/20ML VIAL IV ONE (13:10)
[2022-10-21] MEDS: traMADol 50 MG TAB PO PRN ×2 (17:30→23:43)
[2022-10-21] MEDS ORDERED: INSULIN LISPRO (NovoLOG) PER UNIT SC ONE (18:25)
[2022-10-21] MEDS ORDERED: BISACODYL 10MG SUPP PR ONE (18:25)
[2022-10-21] MEDS: LEVEMIR (INSULIN DETEMIR) 1 UNITS/0.01ML SC SCH (20:24)
[2022-10-21] MEDS: SIMVASTATIN 20 MG TAB PO SCH (20:26)
[2022-10-22 04:51] VITALS: BP 154/90
[2022-10-22 05:17] LABS: HEMATOCRIT 41.9 % (36.0-47.0); HEMOGLOBIN 12.6 g/dl (12.0-15.5); MEAN CORPUSCULAR HEMOGLOBIN 31.3 pg (27.0-33.0); MEAN CORPUSCULAR HGB CONC 30.1 g/dl (32.0-36.5); MEAN CORPUSCULAR VOLUME 104.2 fl (80.0-96.0); PLATELET COUNT, AUTOMATED 243 10^3/uL (150-450); RED BLOOD COUNT 4.02 10^6/uL (4.00-5.40); WHITE BLOOD COUNT 19.4 10^3/uL (4.0-10.0)
[2022-10-22] MEDS: CEPHALEXIN 500 MG CAP PO SCH ×3 (05:51→17:57)
[2022-10-22] MEDS: oxyCODONE 5MG TAB PO PRN ×2 (05:51→17:58)
[2022-10-22] MEDS ORDERED: MAG SULF 1GM/100ML (MAG RUN) 1 GM in IV 1 EA IV ONE (09:00)
[2022-10-22 09:26] VITALS: BP 170/90
[2022-10-22] MEDS: INSULIN LISPRO (NovoLOG) PER UNIT SC SCH ×4 (09:43→21:11)
[2022-10-22] MEDS: APIXABAN 5 MG TAB (ELIQUIS) PO SCH ×2 (09:44→21:12)
[2022-10-22] MEDS: ACETAMINOPHEN 500 MG TAB PO SCH ×2 (09:44→21:11)
[2022-10-22] MEDS: DOCUSATE SODIUM 100MG CAPSULE PO SCH (09:45)
[2022-10-22] MEDS: allopurinoL 100 MG TAB PO SCH (09:45)
[2022-10-22] MEDS: GABAPENTIN 400MG CAP PO SCH ×3 (09:45→21:12)
[2022-10-22] MEDS: FERROUS SULFATE 325MG TAB PO SCH (09:45)
[2022-10-22] MEDS: OCUVITE 1 TAB PO SCH ×2 (09:45→21:11)
[2022-10-22] MEDS: FUROSEMIDE 40 MG TAB PO SCH ×2 (09:45→16:33)
[2022-10-22] MEDS: traMADol 50 MG TAB PO PRN (09:46)
[2022-10-22] MEDS ORDERED: SODIUM CHLORIDE 0.9% 1000ML IV ONE (10:55)
[2022-10-22 11:19] VITALS: BP 146/76
[2022-10-22 13:33] LABS: BASO # 0.1 10^3/uL (0.0-0.2); BASO % 0.2 % (0.0-1.0); EOS # 0.1 10^3/uL (0.0-0.5); EOS % 0.4 % (0.0-3.0); HEMOGLOBIN 12.5 g/dl (12.0-15.5); LYMPH # 2.1 10^3/uL (1.5-5.0); LYMPH % 8.3 % (24.0-44.0); MEAN CORPUSCULAR HEMOGLOBIN 30.5 pg (27.0-33.0); MEAN CORPUSCULAR HGB CONC 31.3 g/dl (32.0-36.5); MEAN CORPUSCULAR VOLUME 97.6 fl (80.0-96.0); MONO % 6.4 % (2.0-8.0); NEUTROPHILS # 20.7 10^3/uL (1.5-8.5); NEUTROPHILS % 83.9 % (36.0-66.0); PLATELET COUNT, AUTOMATED 288 10^3/uL (150-450); WHITE BLOOD COUNT 24.7 10^3/uL (4.0-10.0)
[2022-10-22 13:53] LABS: HEMOGLOBIN A1c 7.1 % (4.0-6.0)
[2022-10-22 13:59] LABS: MONO # 1.6 10^3/uL (0.0-0.8)
[2022-10-22 16:24] VITALS: BP 144/67
[2022-10-22 20:13] VITALS: BP 153/66
[2022-10-22] MEDS ORDERED: LOSARTAN 50MG TABLET PO SCH (21:00)
[2022-10-22] MEDS ORDERED: LEVEMIR (INSULIN DETEMIR) 1 UNITS/0.01ML SC SCH (21:00)
[2022-10-22] MEDS: SIMVASTATIN 20 MG TAB PO SCH (21:11)
[2022-10-22 21:12] VITALS: BP 153/66
[2022-10-23] MEDS: CEPHALEXIN 500 MG CAP PO SCH ×3 (00:15→13:03)
[2022-10-23] MEDS: oxyCODONE 5MG TAB PO PRN (03:07)
[2022-10-23 04:39] VITALS: BP 132/67
[2022-10-23] MEDS: INSULIN LISPRO (NovoLOG) PER UNIT SC SCH ×2 (07:30→13:04)
[2022-10-23 08:00] VITALS: BP 136/61
[2022-10-23 08:15] LABS: MEAN CORPUSCULAR HEMOGLOBIN 31.2 pg (27.0-33.0); MEAN CORPUSCULAR HGB CONC 31.9 g/dl (32.0-36.5); MEAN CORPUSCULAR VOLUME 97.8 fl (80.0-96.0); PLATELET COUNT, AUTOMATED 215 10^3/uL (150-450); RED BLOOD COUNT 3.17 10^6/uL (4.00-5.40); WHITE BLOOD COUNT 14.3 10^3/uL (4.0-10.0)
[2022-10-23 08:17] LABS: MAGNESIUM LEVEL 1.8 MG/DL (1.8-2.4)
[2022-10-23 08:19] LABS: BLOOD UREA NITROGEN 20 MG/DL (9-23); CALCIUM LEVEL 8.1 MG/DL (8.3-10.6); CARBON DIOXIDE LEVEL 27 MMOL/L (20-31); CHLORIDE LEVEL 102 MMOL/L (98-107); CREATININE FOR GFR 0.81 MG/DL (0.55-1.30); GLOMERULAR FILTRATION RATE > 60.0 (>32); GLUCOSE, FASTING 112 MG/DL (74-106); POTASSIUM SERUM 3.7 MMOL/L (3.5-5.1); SODIUM LEVEL 137 MMOL/L (136-145)
[2022-10-23 08:23] LABS: HEMOGLOBIN 9.9 g/dl (12.0-15.5)
[2022-10-23] MEDS ORDERED: ASPIRIN 81MG ENTERIC TABLET PO SCH (09:00)
[2022-10-23] MEDS: OCUVITE 1 TAB PO SCH (09:07)
[2022-10-23] MEDS: APIXABAN 5 MG TAB (ELIQUIS) PO SCH (09:07)
[2022-10-23] MEDS: FERROUS SULFATE 325MG TAB PO SCH (09:07)
[2022-10-23] MEDS: DOCUSATE SODIUM 100MG CAPSULE PO SCH (09:07)
[2022-10-23] MEDS: GABAPENTIN 400MG CAP PO SCH (09:07)
[2022-10-23] MEDS: ACETAMINOPHEN 500 MG TAB PO SCH (09:07)
[2022-10-23] MEDS: FUROSEMIDE 40 MG TAB PO SCH (09:08)
[2022-10-23] MEDS: allopurinoL 100 MG TAB PO SCH (09:17)
[2022-10-23] MEDS ORDERED: LASI40TA9 PO ×2 (10:17→11:23)
[2022-10-23] MEDS ORDERED: CEPH500C PO (11:23)
[2022-10-23] MEDS ORDERED: ACET-897 PO (11:26)
[2022-10-23] MEDS ORDERED: MIRA1POW3 PO (11:28)
[2022-10-23] MEDS ORDERED: SENN8.6T58 PO (11:28)
[2022-10-23 16:00] VITALS: BP 121/58
== END 2022-10-23 17:05 | disposition home or self-care (01) | DRG 563 ==
LOC: M ED 12:11 → M ED INP 17:17 → M PCU 21:37
PROVIDERS: ADMIT Internal Medicine; ATTEND Internal Medicine
PROC: 0S9D3ZZ Drainage of Left Knee Joint, Percutaneous Approach (ICD-10-PCS; 2022-10-17)
PROC: 0J9M00Z Drainage of Left Upper Leg Subcutaneous Tissue and Fascia with Drainage Device, Open Approach (ICD-10-PCS; principal; 2022-10-19)
DX: S42.202A Unspecified fracture of upper end of left humerus, initial encounter for closed fracture (principal); I13.0 Hypertensive heart and chronic kidney disease with heart failure and stage 1 through stage 4 chronic kidney disease, or unspecified chronic kidney disease; I50.32 Chronic diastolic (congestive) heart failure; N17.9 Acute kidney failure, unspecified; W01.0XXA Fall on same level from slipping, tripping and stumbling without subsequent striking against object, initial encounter; Y92.009 Unspecified place in unspecified non-institutional (private) residence as the place of occurrence of the external cause; I48.91 Unspecified atrial fibrillation; I49.5 Sick sinus syndrome; N18.30 Chronic kidney disease, stage 3 unspecified; E11.22 Type 2 diabetes mellitus with diabetic chronic kidney disease; E11.42 Type 2 diabetes mellitus with diabetic polyneuropathy; M19.90 Unspecified osteoarthritis, unspecified site; M10.9 Gout, unspecified; F41.9 Anxiety disorder, unspecified; D64.9 Anemia, unspecified; E66.9 Obesity, unspecified; K59.00 Constipation, unspecified; Z90.49 Acquired absence of other specified parts of digestive tract; S40.012A Contusion of left shoulder, initial encounter; S80.02XA Contusion of left knee, initial encounter; Z79.01 Long term (current) use of anticoagulants; Z79.82 Long term (current) use of aspirin; Z79.84 Long term (current) use of oral hypoglycemic drugs; Z79.899 Other long term (current) drug therapy; Z88.0 Allergy status to penicillin; Z88.1 Allergy status to other antibiotic agents; Z20.822 Contact with and (suspected) exposure to COVID-19

== ENCOUNTER → 2022-10-27 | Outpatient (REF) | payer OTHER ==
[~2022-10-27] MED LIST changes: +ACET-897 PO; +ACET500P3 PO; +CEPH500C PO; +ECOT81TA5 PO; +ELIQ5TAB PO; +FARX1TAB3 PO; +FENO67CA12 PO; -FENO67CA16 PO; +FURO40TA2 PO; +GABA-283 PO; +LASI40TA9 PO; +LOSA50TA28 PO; +MIRA1POW3 PO; +MIRA3350 PO; +OXYC-517 PO; +POTA-141 PO; +PRESCAP PO; +RA T500C2 PO; +SENN18TA PO; +SENN8.6T58 PO; +SIMV20TA22 PO
[2022-10-27 15:27] LABS: HEMATOCRIT 34.6 % (36.0-47.0); HEMOGLOBIN 10.5 g/dl (12.0-15.5); MEAN CORPUSCULAR HEMOGLOBIN 30.8 pg (27.0-33.0); MEAN CORPUSCULAR HGB CONC 30.3 g/dl (32.0-36.5); MEAN CORPUSCULAR VOLUME 101.5 fl (80.0-96.0); PLATELET COUNT, AUTOMATED 327 10^3/uL (150-450); RED BLOOD COUNT 3.41 10^6/uL (4.00-5.40); WHITE BLOOD COUNT 9.7 10^3/uL (4.0-10.0)
== END ==
LOC: M LAB REF 12:36
PROVIDERS: ATTEND Internal Medicine
DX: D72.829 Elevated white blood cell count, unspecified (principal)

== ENCOUNTER → 2022-11-03 | Outpatient (REF) | payer OTHER ==
[~2022-11-03] MED LIST changes: -FENO67CA12 PO; +FENO67CA16 PO
== END ==
LOC: M SFHCPLAZ 15:52
PROVIDERS: ATTEND Family Medicine
DX: Z53.9 Procedure and treatment not carried out, unspecified reason (principal)

== ENCOUNTER → 2022-11-04 | Outpatient (REF) | payer OTHER ==
[2022-11-04 16:31] LABS: BASO % 0.4 % (0.0-1.0); EOS # 0.2 10^3/uL (0.0-0.5); EOS % 2.2 % (0.0-3.0); HEMATOCRIT 35.5 % (36.0-47.0); HEMOGLOBIN 11.1 g/dl (12.0-15.5); LYMPH # 1.3 10^3/uL (1.5-5.0); LYMPH % 16.3 % (24.0-44.0); MEAN CORPUSCULAR HEMOGLOBIN 30.4 pg (27.0-33.0); MEAN CORPUSCULAR HGB CONC 31.3 g/dl (32.0-36.5); MEAN CORPUSCULAR VOLUME 97.3 fl (80.0-96.0); MONO # 0.4 10^3/uL (0.0-0.8); MONO % 4.9 % (2.0-8.0); NEUTROPHILS # 6.3 10^3/uL (1.5-8.5); NEUTROPHILS % 75.8 % (36.0-66.0); PLATELET COUNT, AUTOMATED 399 10^3/uL (150-450); RED BLOOD COUNT 3.65 10^6/uL (4.00-5.40); WHITE BLOOD COUNT 8.2 10^3/uL (4.0-10.0)
[2022-11-04 18:26] LABS: ERYTHROCYTE SEDIMENTATION RATE 53 mm/hr (0-30)
== END ==
LOC: M LAB REF 16:02
PROVIDERS: ATTEND Physician Assistant
DX: S81.802D Unspecified open wound, left lower leg, subsequent encounter (principal)

== ENCOUNTER → 2022-11-04 | Outpatient (REF) | payer OTHER ==
[2022-11-04 16:22] LABS: BASO % 0.5 % (0.0-1.0); EOS # 0.2 10^3/uL (0.0-0.5); EOS % 2.2 % (0.0-3.0); HEMATOCRIT 35.6 % (36.0-47.0); HEMOGLOBIN 11.2 g/dl (12.0-15.5); LYMPH # 1.4 10^3/uL (1.5-5.0); LYMPH % 17.5 % (24.0-44.0); MEAN CORPUSCULAR HEMOGLOBIN 30.6 pg (27.0-33.0); MEAN CORPUSCULAR HGB CONC 31.5 g/dl (32.0-36.5); MEAN CORPUSCULAR VOLUME 97.3 fl (80.0-96.0); MONO # 0.4 10^3/uL (0.0-0.8); MONO % 4.6 % (2.0-8.0); NEUTROPHILS # 6.1 10^3/uL (1.5-8.5); NEUTROPHILS % 74.8 % (36.0-66.0); PLATELET COUNT, AUTOMATED 398 10^3/uL (150-450); RED BLOOD COUNT 3.66 10^6/uL (4.00-5.40); WHITE BLOOD COUNT 8.1 10^3/uL (4.0-10.0)
[2022-11-04 16:38] LABS: ALBUMIN 2.6 G/DL (3.2-5.2); ALKALINE PHOSPHATASE 218 U/L (46-116); ALT/SGPT 24 U/L (7.0-40); AST/SGOT 30 U/L (<34); BILIRUBIN,TOTAL 0.5 MG/DL (0.3-1.2); BLOOD UREA NITROGEN 22 MG/DL (9-23); CALCIUM LEVEL 8.7 MG/DL (8.3-10.6); CARBON DIOXIDE LEVEL 26 MMOL/L (20-31); CHLORIDE LEVEL 103 MMOL/L (98-107); CREATININE FOR GFR 0.86 MG/DL (0.55-1.30); GLOMERULAR FILTRATION RATE > 60.0 (>32); GLUCOSE, FASTING 202 MG/DL (74-106); POTASSIUM SERUM 4.1 MMOL/L (3.5-5.1); SODIUM LEVEL 138 MMOL/L (136-145); TOTAL PROTEIN 5.6 G/DL (5.7-8.2)
== END ==
LOC: M SFHCPLAZ 16:00
PROVIDERS: ATTEND Student in an Organized Health Care Education/Training Program
DX: S42.202S Unspecified fracture of upper end of left humerus, sequela (principal)

== ENCOUNTER → 2022-11-06 | Outpatient (CLI) | payer OTHER | LOC: M SOG 09:03 | PROVIDERS: ATTEND Physician Assistant | DX: S42.202D Unspecified fracture of upper end of left humerus, subsequent encounter for fracture with routine healing (principal) ==

== ENCOUNTER → 2022-12-18 | Outpatient (CLI) | payer OTHER | LOC: M SOG 08:06 | PROVIDERS: ATTEND Student in an Organized Health Care Education/Training Program | DX: S42.202D Unspecified fracture of upper end of left humerus, subsequent encounter for fracture with routine healing (principal) ==

== ENCOUNTER → 2023-01-15 | Outpatient (CLI) | payer OTHER | LOC: M SOG 09:46 | PROVIDERS: ATTEND Student in an Organized Health Care Education/Training Program | DX: S42.202D Unspecified fracture of upper end of left humerus, subsequent encounter for fracture with routine healing (principal) ==

== ENCOUNTER → 2023-03-09 | Outpatient (CLI) | payer OTHER ==
[~2023-03-09] MED LIST changes: -LOSA100T45 PO; +LOSA100T46 PO
[2023-03-09 18:43] LABS: MAU/CREAT RATIO 465.7 MCG/MG (0.0-30.0)
[2023-03-09 18:48] LABS: ALBUMIN 3.7 G/DL (3.2-5.2); BILIRUBIN,TOTAL 0.7 MG/DL (0.3-1.2); CALCIUM LEVEL 8.7 MG/DL (8.3-10.6); CREATININE FOR GFR 1.03 MG/DL (0.55-1.30); GLOMERULAR FILTRATION RATE 54.5 (>32); POTASSIUM SERUM 4.3 MMOL/L (3.5-5.1); TOTAL PROTEIN 6.5 G/DL (5.7-8.2)
[2023-03-09 18:51] LABS: HEMOGLOBIN A1c 8.2 % (4.0-6.0)
== END ==
LOC: M PLALAB 14:55
PROVIDERS: ATTEND Student in an Organized Health Care Education/Training Program
DX: E11.21 Type 2 diabetes mellitus with diabetic nephropathy (principal)

== ENCOUNTER → 2023-11-11 | Outpatient (REF) | payer OTHER ==
[~2023-11-11] MED LIST changes: -GABA-283 PO; +GABA-284 PO; +MECL-209 PO; -MECL1TAB31 PO; +SENN-111 PO; -SENN18TA PO
[2023-11-11 14:31] LABS: BASO % 0.3 % (0.0-1.0); EOS # 0.3 10^3/uL (0.0-0.5); EOS % 3.1 % (0.0-3.0); HEMATOCRIT 46.9 % (36.0-47.0); HEMOGLOBIN 15.1 g/dl (12.0-15.5); LYMPH # 1.6 10^3/uL (1.5-5.0); LYMPH % 17.4 % (24.0-44.0); MEAN CORPUSCULAR HEMOGLOBIN 31.3 pg (27.0-33.0); MEAN CORPUSCULAR HGB CONC 32.2 g/dl (32.0-36.5); MEAN CORPUSCULAR VOLUME 97.1 fl (80.0-96.0); MONO # 0.7 10^3/uL (0.0-0.8); MONO % 6.9 % (2.0-8.0); NEUTROPHILS # 6.8 10^3/uL (1.5-8.5); NEUTROPHILS % 71.9 % (36.0-66.0); PLATELET COUNT, AUTOMATED 207 10^3/uL (150-450); RED BLOOD COUNT 4.83 10^6/uL (4.00-5.40); WHITE BLOOD COUNT 9.4 10^3/uL (4.0-10.0)
[2023-11-11 14:53] LABS: HEMOGLOBIN A1c 7.9 % (4.0-6.0)
[2023-11-11 14:59] LABS: URIC ACID 4.9 MG/DL (3.1-7.8)
[2023-11-11 15:02] LABS: ALBUMIN 3.7 G/DL (3.2-5.2); ALKALINE PHOSPHATASE 97 U/L (46-116); ALT/SGPT 17 U/L (7.0-40); AST/SGOT 18 U/L (<34); BILIRUBIN,TOTAL 0.7 MG/DL (0.3-1.2); BLOOD UREA NITROGEN 31 MG/DL (9-23); CALCIUM LEVEL 9.6 MG/DL (8.3-10.6); CARBON DIOXIDE LEVEL 31 MMOL/L (20-31); CHLORIDE LEVEL 104 MMOL/L (98-107); CHOLESTEROL LEVEL 157 MG/DL (<200); CHOLESTEROL RISK RATIO 2.66 (<5); CREATININE FOR GFR 0.89 MG/DL (0.55-1.30); GLOMERULAR FILTRATION RATE > 60.0 (>32); GLUCOSE, FASTING 191 MG/DL (74-106); LDL CHOLESTEROL 69.4 MG/DL (<100); SODIUM LEVEL 142 MMOL/L (136-145); TOTAL PROTEIN 6.6 G/DL (5.7-8.2); TRIGLYCERIDES LEVEL 143 MG/DL (<150)
== END ==
LOC: M SFHCADAM 08:04
PROVIDERS: ATTEND Student in an Organized Health Care Education/Training Program
DX: E11.69 Type 2 diabetes mellitus with other specified complication (principal); E78.5 Hyperlipidemia, unspecified; I10 Essential (primary) hypertension; M1A.9XX0 Chronic gout, unspecified, without tophus (tophi)

== ENCOUNTER → 2024-04-22 | Outpatient (REF) | payer OTHER ==
[~2024-04-22] MED LIST changes: -MIRA1POW3 PO; +MIRA33506 PO
[2024-04-22 14:40] LABS: APPEARANCE, URINE CLEAR (CLEAR); BACTERIA, URINE AUTO NEGATIVE (NEGATIVE); BILIRUBIN, URINE AUTO NEGATIVE (NEGATIVE); BLOOD, URINE BLOOD NEGATIVE (NEGATIVE); COLOR, URINE COLORLESS (YELLOW); GLUCOSE, URINE (UA) AUTO 3+ mg/dL (NEGATIVE); KETONE, URINE AUTO NEGATIVE (NEGATIVE); LEUKOCYTE ESTERASE, URINE AUTO NEGATIVE (NEGATIVE); NITRITE, URINE AUTO NEGATIVE (NEGATIVE); PROTEIN, URINE AUTO NEGATIVE (NEGATIVE); RBC, URINE AUTO 0 /HPF (0-3); SPECIFIC GRAVITY URINE AUTO 1.002 (1.002-1.035); SQUAMOUS EPITHELIAL CELL UR AU 0 /HPF (0-6); UROBILINOGEN, URINE AUTO 0.2 mg/dL (0.0-2.0); WBC, URINE AUTO 3 /HPF (0-3)
== END ==
LOC: M LAB REF 12:20
PROVIDERS: ATTEND Physician Assistant Medical
DX: N39.0 Urinary tract infection, site not specified (principal)

== ENCOUNTER → 2024-05-23 | Outpatient (REF) | payer OTHER | LOC: M SFHCPLAZ 17:40 | PROVIDERS: ATTEND Student in an Organized Health Care Education/Training Program | DX: E11.9 Type 2 diabetes mellitus without complications (principal); M1A.00X0 Idiopathic chronic gout, unspecified site, without tophus (tophi); E78.5 Hyperlipidemia, unspecified ==

== ENCOUNTER → 2024-05-24 | Outpatient (REF) | payer OTHER | LOC: M SFHCPLAZ 16:55 | PROVIDERS: ATTEND Student in an Organized Health Care Education/Training Program | DX: E11.9 Type 2 diabetes mellitus without complications (principal); M1A.00X0 Idiopathic chronic gout, unspecified site, without tophus (tophi); E78.5 Hyperlipidemia, unspecified; Z53.9 Procedure and treatment not carried out, unspecified reason ==

== ENCOUNTER → 2024-08-01 | Outpatient (REF) | payer OTHER ==
[~2024-08-01] MED LIST changes: -SENN-111 PO; +SENN-165 PO
[2024-08-01 14:28] LABS: BLOOD UREA NITROGEN 23 MG/DL (9-23); CALCIUM LEVEL 9.6 MG/DL (8.3-10.6); CARBON DIOXIDE LEVEL 28 MMOL/L (20-31); CHLORIDE LEVEL 106 MMOL/L (98-107); CHOLESTEROL LEVEL 123 MG/DL (<200); CHOLESTEROL RISK RATIO 2.27 (<5); CREATININE FOR GFR 0.94 MG/DL (0.55-1.30); GLOMERULAR FILTRATION RATE > 60.0 (>32); GLUCOSE, FASTING 133 MG/DL (74-106); HDL CHOLESTEROL 54.1 MG/DL (>40); LDL CHOLESTEROL 32.1 MG/DL (<100); NON-HDL-C 68.9 MG/DL; SODIUM LEVEL 143 MMOL/L (136-145); TRIGLYCERIDES LEVEL 184 MG/DL (<150)
[2024-08-01 14:29] LABS: URIC ACID 6.1 MG/DL (3.1-7.8)
[2024-08-01 14:42] LABS: HEMOGLOBIN A1c 5.9 % (4.0-6.0)
[2024-08-01 14:51] LABS: CREATININE, URINE 80.9 MG/DL
[2024-08-01 15:07] LABS: MAU/CREAT RATIO 540.1 MCG/MG (0.0-30.0)
== END ==
LOC: M SFHCADAM 09:10
DX: E11.9 Type 2 diabetes mellitus without complications (principal); M1A.00X0 Idiopathic chronic gout, unspecified site, without tophus (tophi); E78.5 Hyperlipidemia, unspecified

== ENCOUNTER 2025-07-06 11:41 | Inpatient (IN) | payer MEDICARE, OTHER ==
[~2025-07-06] VITALS: Ht 157.5 cm; Wt 84.0 kg
[~2025-07-06 11:41] MED LIST changes: -RA T500C2 PO; +TURM500C10 PO
[2025-07-06 12:35] LABS: BASO # 0.0 10^3/uL (0.0-0.2); BASO % 0.2 % (0.0-1.0); EOS # 0.0 10^3/uL (0.0-0.5); EOS % 0.2 % (0.0-3.0); LYMPH # 1.0 10^3/uL (1.5-5.0); LYMPH % 7.9 % (24.0-44.0); MONO # 1.1 10^3/uL (0.0-0.8); MONO % 8.9 % (2.0-8.0); NEUTROPHILS # 10.3 10^3/uL (1.5-8.5); NEUTROPHILS % 82.3 % (36.0-66.0); PLATELET COUNT, AUTOMATED 263 10^3/uL (150-450)
[2025-07-06 12:49] LABS: INR 1.6
[2025-07-06 13:02] LABS: ALT/SGPT 17.0 U/L (7.0-40); AST/SGOT 25.0 U/L (<34); CALCIUM LEVEL 9.2 MG/DL (8.3-10.6); CARBON DIOXIDE LEVEL 27.0 MMOL/L (20-31); CHLORIDE LEVEL 98.0 MMOL/L (98-107); CREATININE FOR GFR 1.08 MG/DL (0.55-1.30); GLOMERULAR FILTRATION RATE 50.0 (>32); POTASSIUM SERUM 3.7 MMOL/L (3.5-5.1); SODIUM LEVEL 139.0 MMOL/L (136-145)
[2025-07-06] MEDS: ONDANSETRON 4MG/2ML VIAL IV ONE (13:11)
[2025-07-06] MEDS: MORPHINE 4 MG/ML 1 ML VIAL IV PRN (13:12)
[2025-07-06 13:28] LABS: C REACTIVE PROTEIN QUANTITATIV 13.35 MG/DL (<1.0)
[2025-07-06] MEDS ORDERED: PRESCAP PO (13:39)
[2025-07-06] MEDS ORDERED: LOSA100T46 PO (13:39)
[2025-07-06] MEDS ORDERED: SEMA1PEN2 INJ (13:39)
[2025-07-06] MEDS ORDERED: METF10004 PO (13:39)
[2025-07-06] MEDS ORDERED: CLON0.5T2 PO (13:40)
[2025-07-06] MEDS ORDERED: HOME MED LIST COMPLETE! XX SCH (13:45)
[2025-07-06] MEDS ORDERED: ISOVUE-370 76% 100 ML VIAL As Ordered ONE (14:31)
[2025-07-06] MEDS ORDERED: clonazePAM 0.5 MG TAB PO PRN (16:25)
[2025-07-06] MEDS: VANCOMYCIN HCL 1,750 MG, VIAL MATE ADAPTER 1 EACH in NS 500 ML IV ONE (17:05)
[2025-07-06] MEDS ORDERED: ACETAMINOPHEN 325 MG TAB PO PRN (17:10)
[2025-07-06] MEDS ORDERED: ACETAMINOPHEN 500 MG TAB PO ONE (17:10)
[2025-07-06] MEDS: FUROSEMIDE 40 MG TAB PO SCH (17:15)
[2025-07-06] MEDS: ACETAMINOPHEN 500 MG TAB PO SCH (17:16)
[2025-07-06 17:30] VITALS: BP 160/72; TEMP 101; O2SAT 94
[2025-07-06] MEDS ORDERED: VANCOMYCIN HCL 1,000 MG in IV FLUID PLACE HOLDER 1 EA IV SCH (18:20)
[2025-07-06] MEDS ORDERED: GLUCAGON INJ 1 MG VIAL SC PRN (18:30)
[2025-07-06] MEDS ORDERED: GLUCOSE 4 GM CHEW PO PRN (18:30)
[2025-07-06] MEDS ORDERED: DEXTROSE 50% 50 ML SYRINGE IV PRN (18:30)
[2025-07-06 18:43] LABS: KETONE, URINE AUTO RFX NEGATIVE (NEGATIVE); NITRITE, URINE AUTO RFX NEGATIVE (NEGATIVE); RBC, URINE AUTO RFX 4 /HPF (0-3); SQUAM EPITHELIAL CELL UR AURFX 0 /HPF (0-6)
[2025-07-06 18:47] LABS: LEUKOCYTE ESTERASE UR AUTO RFX 3+ (NEGATIVE); WBC, URINE AUTO RFX 56 /HPF (0-3)
[2025-07-06] MEDS: amLODIPine 10 MG TAB PO ONE (18:52)
[2025-07-06] MEDS: METOPROLOL TART 25 MG TABLET PO SCH (18:52)
[2025-07-06 19:10] VITALS: TEMP 98.7
[2025-07-06 19:11] LABS: SOURCE, BODY FLUID RT KNEE
[2025-07-06] MEDS: NS (Normal Saline) 0.9% 1,000 ML IV SCH (19:22)
[2025-07-06 19:29] LABS: CRYSTALS, BODY FLUID CA PYROPHOSPHATE (NONE SEEN); SOURCE, BODY FLUID CRYSTALS RT KNEE
[2025-07-06 20:52] VITALS: BP 112/55; TEMP 98.3; O2SAT 94
[2025-07-06] MEDS: GABAPENTIN 400 MG CAP PO SCH (20:52)
[2025-07-06] MEDS: SIMVASTATIN 20 MG TAB PO SCH (20:52)
[2025-07-06] MEDS ORDERED: APIXABAN 5 MG TAB PO SCH (21:00)
[2025-07-06] MEDS: INSULIN LISPRO (NovoLOG) PER UNIT SC SCH (21:00)
[2025-07-06] MEDS ORDERED: LOSARTAN 50 MG TABLET PO SCH (21:00)
[2025-07-07 04:16] VITALS: BP 114/56; TEMP 97; O2SAT 95
[2025-07-07 07:48] LABS: BASO # 0.1 10^3/uL (0.0-0.2); BASO % 0.7 % (0.0-1.0); EOS # 0.2 10^3/uL (0.0-0.5); EOS % 2.7 % (0.0-3.0); LYMPH # 1.3 10^3/uL (1.5-5.0); LYMPH % 17.2 % (24.0-44.0); MONO # 1.0 10^3/uL (0.0-0.8); MONO % 12.8 % (2.0-8.0); NEUTROPHILS # 5.0 10^3/uL (1.5-8.5); NEUTROPHILS % 66.2 % (36.0-66.0); PLATELET COUNT, AUTOMATED 213 10^3/uL (150-450)
[2025-07-07 08:00] VITALS: BP 126/53; TEMP 96.2; O2SAT 97
[2025-07-07 08:05] LABS: VANCOMYCIN LEVEL TROUGH 10.1 UG/ML (10.0-20.0)
[2025-07-07 08:16] LABS: CALCIUM LEVEL 7.5 MG/DL (8.3-10.6); CARBON DIOXIDE LEVEL 28.0 MMOL/L (20-31); CHLORIDE LEVEL 102.0 MMOL/L (98-107); CHOLESTEROL LEVEL 105.0 MG/DL (<200); CHOLESTEROL RISK RATIO 2.32 (<5); CREATININE FOR GFR 1.28 MG/DL (0.55-1.30); GLOMERULAR FILTRATION RATE 40.8 (>32); LDL CHOLESTEROL 44.9 MG/DL (<100); NON-HDL-C 59.9 MG/DL; POTASSIUM SERUM 3.7 MMOL/L (3.5-5.1); SODIUM LEVEL 139.0 MMOL/L (136-145); TRIGLYCERIDES LEVEL 75.0 MG/DL (<150)
[2025-07-07] MEDS: INSULIN LISPRO (NovoLOG) PER UNIT SC SCH (08:18)
[2025-07-07] MEDS: DAPAGLIFLOZIN PROPANEDIOL 10 MG TABLET PO SCH (08:18)
[2025-07-07 08:52] LABS: ESTIMATED AVERAGE GLUCOSE 120.0 MG/DL (60-110)
[2025-07-07] MEDS: APIXABAN 5 MG TAB PO SCH (09:01)
[2025-07-07] MEDS: VANCOMYCIN HCL 1,000 MG, VIAL MATE ADAPTER 1 EACH in NS 250 ML IV SCH (09:01)
[2025-07-07] MEDS: HYDROMORPHONE HCL 0.5 MG/0.5 ML SYRINGE IV ONE (16:08)
[2025-07-07 19:54] VITALS: BP 135/60; TEMP 99.8; O2SAT 96
[2025-07-08 03:30] VITALS: BP 156/56; TEMP 98.1; O2SAT 96
[2025-07-08] MEDS ORDERED: CIPROFLOXACIN 250 MG TAB PO SCH (06:00)
[2025-07-08 09:10] LABS: BASO # 0.1 10^3/uL (0.0-0.2); BASO % 0.6 % (0.0-1.0); EOS # 0.4 10^3/uL (0.0-0.5); EOS % 4.6 % (0.0-3.0); LYMPH # 1.1 10^3/uL (1.5-5.0); LYMPH % 13.0 % (24.0-44.0); MONO # 0.6 10^3/uL (0.0-0.8); MONO % 6.4 % (2.0-8.0); NEUTROPHILS # 6.5 10^3/uL (1.5-8.5); NEUTROPHILS % 74.9 % (36.0-66.0); PLATELET COUNT, AUTOMATED 267 10^3/uL (150-450)
[2025-07-08 09:36] LABS: CALCIUM LEVEL 8.3 MG/DL (8.3-10.6); CARBON DIOXIDE LEVEL 27.0 MMOL/L (20-31); CHLORIDE LEVEL 101.0 MMOL/L (98-107); CREATININE FOR GFR 1.21 MG/DL (0.55-1.30); GLOMERULAR FILTRATION RATE 43.7 (>32); POTASSIUM SERUM 4.0 MMOL/L (3.5-5.1); SODIUM LEVEL 135.0 MMOL/L (136-145)
[2025-07-08] MEDS: FLUZONE HIGH DOSE (65+) 0.5 ML SYRINGE (25-26) IM.IMMUN ONE (10:00)
[2025-07-08 11:29] VITALS: BP 160/65; TEMP 98.1; O2SAT 95
[2025-07-08] MEDS ORDERED: PILL CUTTER 1 EACH XX ONE (12:42)
[2025-07-08] MEDS: CIPROFLOXACIN 250 MG TAB PO SCH (18:20)
[2025-07-08 19:46] VITALS: BP 141/62; TEMP 98.2; O2SAT 95
[2025-07-09 03:44] VITALS: BP 119/65; TEMP 96.7; O2SAT 93
[2025-07-09 06:33] LABS: BASO # 0.0 10^3/uL (0.0-0.2); BASO % 0.4 % (0.0-1.0); EOS # 0.4 10^3/uL (0.0-0.5); EOS % 4.9 % (0.0-3.0); LYMPH # 1.1 10^3/uL (1.5-5.0); LYMPH % 13.6 % (24.0-44.0); MONO # 0.5 10^3/uL (0.0-0.8); MONO % 6.6 % (2.0-8.0); NEUTROPHILS # 5.8 10^3/uL (1.5-8.5); NEUTROPHILS % 74.1 % (36.0-66.0); PLATELET COUNT, AUTOMATED 281 10^3/uL (150-450)
[2025-07-09 06:57] LABS: CALCIUM LEVEL 8.4 MG/DL (8.3-10.6); CARBON DIOXIDE LEVEL 27.0 MMOL/L (20-31); CHLORIDE LEVEL 103.0 MMOL/L (98-107); CREATININE FOR GFR 1.11 MG/DL (0.55-1.30); GLOMERULAR FILTRATION RATE 48.4 (>32); POTASSIUM SERUM 4.0 MMOL/L (3.5-5.1); SODIUM LEVEL 139.0 MMOL/L (136-145)
[2025-07-09] MEDS: predniSONE 20 MG TAB PO SCH (10:25)
[2025-07-09 11:49] VITALS: BP 163/68; TEMP 98.1; O2SAT 90
[2025-07-09 19:55] VITALS: BP 152/75; TEMP 98.1; O2SAT 96
[2025-07-10 03:51] VITALS: BP 113/82; TEMP 97.9; O2SAT 93
[2025-07-10 06:55] LABS: BASO # 0.0 10^3/uL (0.0-0.2); BASO % 0.1 % (0.0-1.0); EOS # 0.1 10^3/uL (0.0-0.5); EOS % 0.8 % (0.0-3.0); LYMPH # 0.9 10^3/uL (1.5-5.0); LYMPH % 11.1 % (24.0-44.0); MONO # 0.5 10^3/uL (0.0-0.8); MONO % 6.4 % (2.0-8.0); NEUTROPHILS # 6.4 10^3/uL (1.5-8.5); NEUTROPHILS % 80.8 % (36.0-66.0); PLATELET COUNT, AUTOMATED 252 10^3/uL (150-450)
[2025-07-10 07:26] LABS: CALCIUM LEVEL 8.3 MG/DL (8.3-10.6); CARBON DIOXIDE LEVEL 23.0 MMOL/L (20-31); CHLORIDE LEVEL 107.0 MMOL/L (98-107); CREATININE FOR GFR 1.0 MG/DL (0.55-1.30); GLOMERULAR FILTRATION RATE 54.9 (>32); POTASSIUM SERUM 4.1 MMOL/L (3.5-5.1); SODIUM LEVEL 140.0 MMOL/L (136-145)
[2025-07-10 08:00] VITALS: BP 117/77; TEMP 97.9; O2SAT 95
[2025-07-10 12:00] VITALS: BP 117/77; TEMP 98.2; O2SAT 95
[2025-07-10 19:38] VITALS: BP 146/74; TEMP 98.1; O2SAT 99
[2025-07-11 06:16] VITALS: BP 138/76; TEMP 97.9; O2SAT 97
[2025-07-11 07:38] LABS: BASO # 0.0 10^3/uL (0.0-0.2); BASO % 0.3 % (0.0-1.0); EOS # 0.1 10^3/uL (0.0-0.5); EOS % 1.4 % (0.0-3.0); LYMPH # 1.2 10^3/uL (1.5-5.0); LYMPH % 14.7 % (24.0-44.0); MONO # 0.5 10^3/uL (0.0-0.8); MONO % 6.8 % (2.0-8.0); NEUTROPHILS # 6.0 10^3/uL (1.5-8.5); NEUTROPHILS % 76.4 % (36.0-66.0); PLATELET COUNT, AUTOMATED 269 10^3/uL (150-450)
[2025-07-11 08:11] LABS: CALCIUM LEVEL 8.7 MG/DL (8.3-10.6); CARBON DIOXIDE LEVEL 24.0 MMOL/L (20-31); CHLORIDE LEVEL 108.0 MMOL/L (98-107); CREATININE FOR GFR 0.98 MG/DL (0.55-1.30); GLOMERULAR FILTRATION RATE 56.2 (>32); POTASSIUM SERUM 4.2 MMOL/L (3.5-5.1); SODIUM LEVEL 142.0 MMOL/L (136-145)
[2025-07-11] MEDS ORDERED: POTA10CA70 PO (11:31)
[2025-07-11] MEDS ORDERED: PRED10TA2 PO (11:31)
[2025-07-11 11:51] VITALS: BP 145/85; TEMP 98.4; O2SAT 97
[2025-07-11 12:55] VITALS: BP 145/85
== END 2025-07-11 13:15 | disposition home health service (06) | DRG 872 ==
LOC: EDBD 11:41 → M ED 11:41 → M ED INP 11:42 → M MSPAV 17:27 → OBSVTOIN 18:04
PROVIDERS: ADMIT General Practice; ATTEND Internal Medicine
PROC: 0S9C3ZZ Drainage of Right Knee Joint, Percutaneous Approach (ICD-10-PCS; principal; 2025-07-06)
DX: A41.9 Sepsis, unspecified organism (principal); E87.20 Acidosis, unspecified; I50.32 Chronic diastolic (congestive) heart failure; I13.0 Hypertensive heart and chronic kidney disease with heart failure and stage 1 through stage 4 chronic kidney disease, or unspecified chronic kidney disease; N39.0 Urinary tract infection, site not specified; M25.461 Effusion, right knee; M71.21 Synovial cyst of popliteal space [Baker], right knee; I25.10 Atherosclerotic heart disease of native coronary artery without angina pectoris; I25.2 Old myocardial infarction; I49.5 Sick sinus syndrome; I48.91 Unspecified atrial fibrillation; N18.30 Chronic kidney disease, stage 3 unspecified; E11.22 Type 2 diabetes mellitus with diabetic chronic kidney disease; M10.061 Idiopathic gout, right knee; G89.29 Other chronic pain; B96.1 Klebsiella pneumoniae [K. pneumoniae] as the cause of diseases classified elsewhere; M17.11 Unilateral primary osteoarthritis, right knee; M54.9 Dorsalgia, unspecified; F41.9 Anxiety disorder, unspecified; E66.9 Obesity, unspecified; I16.0 Hypertensive urgency; Z68.36 Body mass index [BMI] 36.0-36.9, adult; Z79.01 Long term (current) use of anticoagulants; Z79.84 Long term (current) use of oral hypoglycemic drugs; Z79.899 Other long term (current) drug therapy; Z88.0 Allergy status to penicillin; Z88.8 Allergy status to other drugs, medicaments and biological substances